=== PATIENT | female | born 1950 | race Caucasian/White ===

== ENCOUNTER 2022-05-11 08:37 | Outpatient (CLI) | payer MEDICARE, SELFPAY ==
--- NOTE | 2022-05-11 | EST_ITS ---
Patient Info Name: Bhumi Garcia Age: 72 years : 1950 Gender: Female Ht: 59 in Wt: 134 lbs BSA: 1.61 m2 HR: 50 bpm BP: 142 / 63 mmHg Exam Date: 05/11/2022 10:50 AM Exam Location: [facility] ([facility]) Stress Patient Status: Outpatient Admit Date: 05/11/2022 Staff Ordering Physician: Wilberto, Dorian WILSON Attending Provider: Wilberto, Dorian WILSON Exercise Technologist: Karen Ferro, CT Exam Type: CA stress shaniqua w NM Study Info Indications R00.2 - Palpitations A regadenoson stress test was performed. Summary 1. No abnormal ST/T wave changes with Lexiscan administration. 2. No arrhythmias were observed during the examination. 3. No chest discomfort with stress test. 4. Please correlate with nuclear medicine images, reported separately. Protocol: Lexiscan Stress ECG Details Stage: REST Duration (min): 1 min : 4 sec HR (bpm): 51 SBP (mmHg): 142 DBP (mmHg): 63 Stage: REST Duration (min): 6 min : 25 sec HR (bpm): 50 SBP (mmHg): 142 DBP (mmHg): 63 Stage: STAGE 1 Duration (min): 1 min : 0 sec HR (bpm): 73 SBP (mmHg): 142 DBP (mmHg): 63 Stage: RECOVERY Duration (min): 1 min : 0 sec HR (bpm): 105 SBP (mmHg): 179 DBP (mmHg): 61 Stage: RECOVERY Duration (min): 2 min : 0 sec HR (bpm): 92 SBP (mmHg): 179 DBP (mmHg): 61 Stage: RECOVERY Duration (min): 3 min : 0 sec HR (bpm): 87 SBP (mmHg): 179 DBP (mmHg): 61 Stage: RECOVERY Duration (min): 3 min : 25 sec HR (bpm): 82 SBP (mmHg): 184 DBP (mmHg): 60 Rest HR: 50 bpm Peak HR: 105 bpm Rest Sys BP: 142 mmHg Peak Sys BP: 184 mmHg Max Pred HR: 146 bpm % Max Pred HR: 72 % Target HR: 124 bpm Max RPP: 19,320 bpm*mmHg Total Time: 1 min : 0 sec Rest Cedeno BP: 63 mmHg Peak Cedeno BP: 60 mmHg Total Dose: 0.4 mg Resting ECG Sinus bradycardia. First degree A-V Block. Stress ECG No abnormal ST/T wave changes with Lexiscan administration. Arrhythmias No arrhythmias were observed during the examination. Report Signatures
--- NOTE | 2022-05-11 | ECHO_ITS ---
Patient Info Name: Bhumi Garcia Age: 72 years : 1950 Gender: Female Ht: 59 in Wt: 134 lbs BSA: 1.61 m2 HR: 48 bpm BP: 122 / 68 mmHg Heart Rhythm: Sinus Rhythm, Bradycardia Exam Date: 05/11/2022 9:09 AM Exam Location: [facility] Pulmonary Patient Status: Outpatient Admit Date: 05/11/2022 Staff Ordering Physician: WilbertoDorian MD Assistant Foreman: Damian Camacho RDCS Attending Provider: ShannonDorian MD Exam Type: CA echo doppler color flow Study Info Indications R00.2 - Palpitations Complete two-dimensional, color flow and Doppler transthoracic echocardiogram is performed. Summary 1. Complete two-dimensional, color flow and Doppler transthoracic echocardiogram is performed. 2. Left ventricular chamber dimension is normal. 3. Left ventricular systolic function is normal, estimated at 60-65%. 4. There is mildly increased left ventricular wall thickness. 5. The left ventricular diastolic function is grade I diastolic dysfunction. 6. Right ventricular systolic function is normal. 7. There is mild mitral valve regurgitation. Left Ventricle Left ventricular chamber dimension is normal. Left ventricular systolic function is normal, estimated at 60-65%. There is mildly increased left ventricular wall thickness. The left ventricular diastolic function is grade I diastolic dysfunction. Right Ventricle Right ventricular chamber dimension is normal. Right ventricular systolic function is normal. Left Atria Left atrial chamber dimension is normal. Right Atria Right atrial chamber dimension is normal. Atrial Septum Intact interatrial septum visualized by color flow imaging. Aortic Valve The aortic valve is trileaflet. There is no aortic valve stenosis. There is no aortic valve regurgitation. Pulmonic Valve The pulmonic valve is not well visualized. Mitral Valve The mitral valve has normal leaflets. There is no mitral valve stenosis. There is mild mitral valve regurgitation. Tricuspid Valve The tricuspid valve leaflets are normal. There is no significant tricuspid valve stenosis. There is trace tricuspid valve regurgitation. Pericardium/Pleural There is no pericardial effusion. Inferior Vena Cava Normal inferior vena cava with >50% collapse upon inspiration consistent with normal right atrial pressure, 3 mmHg. Aorta The aortic root size at the sinus of Valsalva is normal. Left Ventricular Outflow Tract Name Value Normal LVOT 2D LVOT Diameter 2.0 cm LVOT Doppler LVOT Peak Gradient 3 mmHg LVOT Mean Gradient 2 mmHg LVOT VTI 23 cm LVOT VTI/AV VTI Ratio 0.7 LVOT Stroke Volume 70 ml LVOT CO 3.3 l/min LVOT CI 2.0 l/min/m2 Mitral Valve Name Value Normal MV Doppler
--- NOTE | ~2022-05-11 | NM_ITS ---
NUCLEAR MEDICINE CARDIAC GATED STRESS TEST: HISTORY: Palpitations. TECHNIQUE: Rest images were obtained following intravenous administration of 10.6 mCi Tc99m Tetrofosm in. The patient was infused intravenously with Lexiscan (regadenoson). Then, third 2.7 mCi Tc99m Tetr ofosmin was administered intravenously, and stress images were obtained. Data was reconstructed into short axis and horizontal and vertical long axis SPECT images. Gated SPECT images were also obtained. FINDINGS: There are no perfusion defects seen on the stress or rest SPECT images. There is normal left ventricular wall motion. Left ventricular ejection fraction is 70%. IMPRESSION: Unremarkable study without findings to indicated ischemia by myocardial perfusion scintigraphy. Reviewed, dictated and finalized at location . [facility] DRIVER IMPRESSION: Unremarkable study without findings to indicated ischemia by myocardial perfusi on scintigraphy.
== END 2022-05-11 08:38 | disposition home or self-care (01) ==
PROVIDERS: PCP Internal Medicine; Visit Provider Internal Medicine
DX: R00.2 Palpitations (principal); I34.0 Nonrheumatic mitral (valve) insufficiency; R93.1 Abnormal findings on diagnostic imaging of heart and coronary circulation; R07.9 Chest pain, unspecified
CPT/HCPCS: 78452; 93017; 93306; A9502; J2785

== ENCOUNTER 2023-09-08 09:39 | Outpatient (CLI) | payer MEDICARE, SELFPAY ==
--- NOTE | ~2023-09-08 | CT_ITS ---
CT of the Abdomen and Pelvis: Indication: Abdominal pain Technique: 2.5 mm axial scans were obtained through the abdomen and pelvis following intravenous adm inistration of 100 cc of Omnipaque 350. Dose reduction technique was used on this scan by utilizing a utomated exposure control and iterative reconstruction technique. The dose-length product (DLP) was 3 84.17 mGy-cm. Findings: Scans through the lung bases are unremarkable. The liver, spleen, pancreas, gallbladder, adrenals and left kidney are within normal limits. Status p ost right nephrectomy. No evidence of aortic aneurysm. No lymphadenopathy. No bowel obstruction or bowel wall thickening. There is no evidence to suggest acute appendicitis. Images through the pelvis were performed. Possible soft tissue thickening along the right side of the inferior pelvis/urinary bladder with mild irregularity of the bladder contour in this region. Status post hysterectomy. No ascites. Impression: No definite acute abnormality seen. Suggestion of irregular soft tissue thickening in the inferior right pelvis and along the inferior ri ght urinary bladder with irregularity of the bladder contour this region. This is of uncertain etiolo gy. Correlate for prior surgery or other treatment changes in this region. Underlying bladder carcino ma or other pelvic neoplastic lesion cannot be excluded based on this exam. Consider additional maninder p as indicated. Status post right nephrectomy. Reviewed, dictated and finalized at location M. Impression: No definite acute abnormality seen. Suggestion of irregular soft tissue thickening in the inferior right pelvis and along the inferior right urinary bladder with irregularity of the bladder cont our this region. This is of uncertain etiology. Correlate for prior surgery or other treatment changes in this region. Underlying bladder carcinoma or other p elvic neoplastic lesion cannot be excluded based on this exam. Consider additio nal workup as indicated. Status post right nephrectomy.
[2023-09-08 10:16] LABS: Estimated Glomerular Filt Rate > 60
== END 2023-09-08 09:40 | disposition home or self-care (01) ==
LOC: ANHIMG 09:42
PROVIDERS: PCP Internal Medicine; Visit Provider Internal Medicine
DX: R10.9 Unspecified abdominal pain (principal); Z90.5 Acquired absence of kidney
CPT/HCPCS: 74177; Q9967

== ENCOUNTER 2024-09-29 10:58 | Emergency (ER) | payer MEDICARE, SELFPAY ==
[2024-09-29] VITALS (13 sets, daily range): BP systolic 113–135; BP diastolic 57–77; PULSE 56–72; RESP 11–20; TEMP 36.2; O2SAT 96–100
--- NOTE | ~2024-09-29 | XR_ITS ---
Clinical Indication: Syncope PA and lateral views of the chest: Comparison: None Findings: The lungs are clear, without evidence of focal consolidation or pleural effusion. Cardiome diastinal silhouette is within normal limits. Bones and soft tissues are unremarkable. Impression: Normal chest. Reviewed, dictated and finalized at location . Impression: Normal chest.
--- OUTSIDE RECORDS SUMMARY | 2024-09-29 11:02 | XMS_ITS | Data Portability ---
Author Organization [facility] Address [address] 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 Name Role Phone PRADEEP LADD Primary Care Provider Unavailabl e Assessment Encounter Date Assessment Date Assessment LastModified by Organization Details LastModified Time 07/20/2023 07/20/2023 Blood work old records continue current therapy pain contract reviewed and signed follow-up with me in 4 months [email or web address] Not available 07/20/2023 23:36:12 08/29/2023 08/29/[address] abdomen and pelvis start some tizanidine also physical therapy and she will let me know in a few days how she is doing with the muscle relaxer otherwise she will see me back in about 4 to 6 weeks if she gets worse she will call sooner. Patient states that she did have contrast IV dye that it makes her throat feel itchy and sometimes a little bit swollen she has had subsequent scans with dye where she was premedicated and she did fine we will premedicate Not available 08/29/2023 22:51:47 11/22/2023 11/22/2023 slight contusion this should lorie on its own she was worried about a DVT my suspicion for that is low [email or web address] Not available 11/24/2023 21:34:00 01/18/2024 01/18/2024 we will continue current therapy does not want anything EKG nothing as far as the palpitations palpitations go but she says if they change or if symptoms come along with it she will let us know we will continue current therapy blood work has been ordered follow up 4 months Not available 01/19/2024 15:53:38 07/11/2024 07/11/2024 blood work has been ordered bring up-to-date on controlled substance agreement and urinary drug screen she does not want to pursue anything for the palpitations at this time I have asked her to reconsider she has no associated symptoms with it but her last episode lasted an hour healthy lifestyle care instructions she will follow up with me in 4 months [email or web address] Not available 07/11/2024 14:09:07 Plan of Treatment Reminders Order Date Submit Date Provider Last Modified By Organization Details Last Modified Time Details Appointments ANY 15 2024 10:00A M Pradeep Ladd MD Not available Not available Not available Lab drug screen , 14 drugs (detec timed) , urine 2024 025 [facility], [address], [address], 09/03/2024 14:08:41 CBC w/ auto diff 2024 025 [facility], [address], [place], [address], 07/30/2024 14:00:52 CMP, serum or plasma 2024 025 [email or web address], [address], [place], [address], 07/22/2024 13:07:01 TSH, ultra- sensit kojo, serum 2024 025 [facility], [address], [place], [address], 07/22/2024 13:07:13 T3, free, serum or plasma 2024 025 [facility], [address], [place], [address], 07/22/2024 13:06:21 T4, free, serum 2024 025 [facility], [address], [place], [address], 07/22/2024 13:07:38 lipid panel, serum 2024 025 [facility], [address], [place], [address], 07/22/2024 13:06:49 CBC w/ auto diff 2023 024 [facility], [address], [place], [address], 01/31/2024 07:37:56 T4, free, serum 2023 024 [facility], [address], [place], [address], 01/31/2024 07:37:58 T3, free, serum or plasma 2023 024 [facility], [address], [place], [address], 01/31/2024 07:37:57 TSH, ultra- sensit kojo, serum 2023 024 [facility], [address], [place], [address], 01/31/2024 07:37:55 lipid panel, serum 2023 024 [facility], [address], [place], [address], 01/31/2024 07:37:53 CMP, serum or plasma 2023 024 [facility], [address], [place], [address], 01/31/2024 07:37:54 CBC w/ auto diff 2023 024 [facility], [address], [place], [address], 08/02/2023 13:40:30 CMP, serum or plasma 2023 024 [facility], [address], [place], [address], 08/02/2023 13:40:29 lipid panel, serum 2023 024 [facility], [address], [place], [address], 08/02/2023 13:40:30 T4, free, serum 2023 024 [facility], [address], [place], [address], 08/02/2023 13:40:30 TSH, ultra- sensit kojo, serum 2023 024 [facility], [address], [place], [address], 08/02/2023 13:40:29 T3, free, serum or plasma 2023 024 [facility], [address], [place], [address], 08/02/2023 13:40:30 Referral physic al therap ist referr al 2023 024 [facility], [address], [place], [address], 01/12/2024 09:12:57 Procedures None record ed. Surgeries None record ed. Imaging CT, abdome n + pelvis , w/ contra st - Pt will need to be pre medica shai due to IV contra st allerg y. 2023 024 [facility] (Imaging), [address], [place], [address], 09/11/2023 13:47:48 Medication Orders tizani dine 4 mg tablet 2023 024 [id number], [address], [place], [place], [id number], 01/18/2024 11:10:47 Patient TargetsNo targets recorded. Patient Instructions Encounter Date Encounter Id Patient Instructions Last Modified By Organization Details Last Modified Time 11/22/2023 [id number] A healthy lifestyle: care instructions [email or web address] Not available 11/24/2023 21:34:18 07/11/2024 [id number] A healthy lifestyle: care instructions [email or web address] Not available 07/11/2024 13:31:49 Reason for Referral Physical Therapist Referral for Abdominal pain Referring Physician: Pradeep Ladd, Internal Medicine, Encounter Date: 08/29/2023 Results Created Date Observation Date Name Description Value Unit Range Abnormal Flag Note LastModifiedBy Organization Detail LastModifiedTime 08/01/19 24 08/02/2023 LIPID PANEL cholesterol, total 139 mg/dL 100-19 9 Not Available [facility] ([facility]) [address] [place], [address], 08/02/2023 12:37:20 08/01/19 24 08/02/2023 LIPID PANEL triglyceride s 224 mg/dL 0-149 above high normal Not Available [facility] ([facility]) [address] [place], [address], 08/02/2023 12:37:20 08/01/19 24 08/02/2023 LIPID PANEL HDL cholesterol 36 mg/dL >39 below low normal Not Available [facility] ([facility]) [address] [place], [address], 08/02/2023 12:37:20 08/01/19 24 08/02/2023 LIPID PANEL VLDL cholesterol melchor 37 mg/dL 5-40 Not Available [facility] ([facility]) [address] [facility] [place], [address], 08/02/2023 12:37:20 08/01/19 24 08/02/2023 LIPID PANEL LDL chol calc ([facility]) 66 mg/dL 0-99 Not Available [facility] ([facility]) [address], [place], [address], 08/02/2023 12:37:20 08/01/19 24 08/02/2023 COMP. METAB OLIC PANEL (14) glucose 84 mg/dL 70-99 Not Available [facility] ([facility]) [address] [place], [address], 08/02/2023 12:37:20 08/01/19 24 08/02/2023 COMP. METAB OLIC PANEL (14) BUN 22 mg/dL 8-27 Not Available [facility] ([facility]) [address] [place], [address], 08/02/2023 12:37:20 08/01/19 24 08/02/2023 COMP. METAB OLIC PANEL (14) creatinine 0.90 mg/dL 0.57-1 .00 Not Available [facility] ([facility]) [address], [place], [address], 08/02/2023 12:37:20 08/01/19 24 08/02/2023 COMP. METAB OLIC PANEL (14) eGFR 67 mL/mi n/1.7 3 >59 Not Available [facility] ([facility]) [address] [place], [address], 08/02/2023 12:37:20 08/01/19 24 08/02/2023 COMP. METAB OLIC PANEL (14) BUN/creatini ne ratio 24 12-28 Not Available [facility] ([facility]) [address] [place], [address], 08/02/2023 12:37:20 08/01/19 24 08/02/2023 COMP. METAB OLIC PANEL (14) sodium 140 mmol/ L 134-14 4 Not Available [facility] ([facility]) [address] [place], [address], 08/02/2023 12:37:20 08/01/19 24 08/02/2023 COMP. METAB OLIC PANEL (14) potassium 4.4 mmol/ L 3.5-5. 2 Not Available [facility] ([facility]) [address] [place], [address], 08/02/2023 12:37:20 08/01/19 24 08/02/2023 COMP. METAB OLIC PANEL (14) chloride 103 mmol/ L 96-106 Not Available [facility] ([facility]) [address] [place], [address], 08/02/2023 12:37:20 08/01/19 24 08/02/2023 COMP. METAB OLIC PANEL (14) carbon dioxide, total 22 mmol/ L 20-29 Not Available [facility] ([facility]) [address] [place], [address], 08/02/2023 12:37:20 08/01/19 24 08/02/2023 COMP. METAB OLIC PANEL (14) calcium 9.4 mg/dL 8.7-10 .3 Not Available [facility] ([facility]) [address] [place], [address], 08/02/2023 12:37:20 08/01/19 24 08/02/2023 COMP. METAB OLIC PANEL (14) protein, total 6.5 g/dL 6.0-8. 5 Not Available [facility] ([facility]) [address] [place], [address], 08/02/2023 12:37:20 08/01/19 24 08/02/2023 COMP. METAB OLIC PANEL (14) albumin 4.4 g/dL 3.8-4. 8 Not Available [facility] ([facility]) [address], [place], [address], 08/02/2023 12:37:20 08/01/19 24 08/02/2023 COMP. METAB OLIC PANEL (14) globulin, total 2.1 g/dL 1.5-4. 5 Not Available [facility] ([facility]) [address] [place], [address], 08/02/2023 12:37:20 08/01/19 24 08/02/2023 COMP. METAB OLIC PANEL (14) A/G ratio 2.1 1.2-2. 2 Not Available [facility] ([facility]) [address] [place], [address], 08/02/2023 12:37:20 08/01/19 24 08/02/2023 COMP. METAB OLIC PANEL (14) bilirubin, total 0.2 mg/dL 0.0-1. 2 Not Available [facility] ([facility]) [address] [place], [address], 08/02/2023 12:37:20 08/01/19 24 08/02/2023 COMP. METAB OLIC PANEL (14) alkaline phosphatase 44 IU/L 44-121 Not Available [facility] ([facility]) [address] [place], [address], 08/02/2023 12:37:20 08/01/19 24 08/02/2023 COMP. METAB OLIC PANEL (14) AST (SGOT) 18 IU/L 0-40 Not Available [facility] ([facility]) [address] [place], [address], 08/02/2023 12:37:20 08/01/19 24 08/02/2023 COMP. METAB OLIC PANEL (14) ALT (SGPT) 25 IU/L 0-32 Not Available [facility] ([facility]) [address] [place], [address], 08/02/2023 12:37:20 08/01/19 24 08/02/2023 TSH TSH 0.917 uIU/m L 0.450- 4.500 Not Available [facility] ([facility]) [address], [place], [address], 08/02/2023 12:37:21 08/01/19 24 08/02/2023 CBC WITH DIFFE RENTI AL/PL ATELE T WBC 5.7 x10e3 /uL 3.4-10 .8 Not Available [facility] ([facility]) [address] [place], [address], 08/02/2023 12:37:21 08/01/19 24 08/02/2023 CBC WITH DIFFE RENTI AL/PL ATELE T RBC 4.42 x10e6 /uL 3.77-5 .28 Not Available [facility] ([facility]) [address], [place], [address], 08/02/2023 12:37:21 08/01/19 24 08/02/2023 CBC WITH DIFFE RENTI AL/PL ATELE T hemoglobin 13.0 g/dL 11.1-1 5.9 Not Available [facility] ([facility]) [address] [place], [address], 08/02/2023 12:37:21 08/01/19 24 08/02/2023 CBC WITH DIFFE RENTI AL/PL ATELE T hematocrit 39.3 % 34.0-4 6.6 Not Available [facility] ([facility]) [address] [place], [address], 08/02/2023 12:37:21 08/01/19 24 08/02/2023 CBC WITH DIFFE RENTI AL/PL ATELE T MCV 89 fL 79-97 Not Available [facility] ([facility]) [address] [place], [address], 08/02/2023 12:37:21 08/01/19 24 08/02/2023 CBC WITH DIFFE RENTI AL/PL ATELE T MCH 29.4 pg 26.6-3 3.0 Not Available [facility] ([facility]) [address], [place], [address], 08/02/2023 12:37:21 08/01/19 24 08/02/2023 CBC WITH DIFFE RENTI AL/PL ATELE T MCHC 33.1 g/dL 31.5-3 5.7 Not Available [facility] ([facility]) [address], [place], [address], 08/02/2023 12:37:21 08/01/19 24 08/02/2023 CBC WITH DIFFE RENTI AL/PL ATELE T RDW 12.6 % 11.7-1 5.4 Not Available [facility] ([facility]) [address], [place], [address], 08/02/2023 12:37:21 08/01/19 24 08/02/2023 CBC WITH DIFFE RENTI AL/PL ATELE T platelets 215 x10e3 /uL 150-45 0 Not Available [facility] ([facility]) [address], [place], [address], 08/02/2023 12:37:21 08/01/19 24 08/02/2023 CBC WITH DIFFE RENTI AL/PL ATELE T neutrophils 60 % notest ab. Not Available [facility] ([facility]) [address] [place], [address], 08/02/2023 12:37:21 08/01/19 24 08/02/2023 CBC WITH DIFFE RENTI AL/PL ATELE T lymphs 23 % notest ab. Not Available [facility] ([facility]) [address] [place], [address], 08/02/2023 12:37:21 08/01/19 24 08/02/2023 CBC WITH DIFFE RENTI AL/PL ATELE T monocytes 10 % notest ab. Not Available [facility] ([facility]) [address], [place], [address], 08/02/2023 12:37:21 08/01/19 24 08/02/2023 CBC WITH DIFFE RENTI AL/PL ATELE T eos 6 % notest ab. Not Available [facility] ([facility]) [address], [place], [address], 08/02/2023 12:37:21 08/01/19 24 08/02/2023 CBC WITH DIFFE RENTI AL/PL ATELE T basos 1 % notest ab. Not Available [facility] ([facility]) [address], [place], [address], 08/02/2023 12:37:21 08/01/19 24 08/02/2023 CBC WITH DIFFE RENTI AL/PL ATELE T neutrophils (absolute) 3.4 x10e3 /uL 1.4-7. 0 Not Available [facility] ([facility]) [address], [place], [address], 08/02/2023 12:37:21 08/01/19 24 08/02/2023 CBC WITH DIFFE RENTI AL/PL ATELE T lymphs (absolute) 1.3 x10e3 /uL 0.7-3. 1 Not Available [facility] ([facility]) [address] [place], [address], 08/02/2023 12:37:21 08/01/19 24 08/02/2023 CBC WITH DIFFE RENTI AL/PL ATELE T monocytes(ab solute) 0.5 x10e3 /uL 0.1-0. 9 Not Available [facility] ([facility]) [address] [place], [address], 08/02/2023 12:37:21 08/01/19 24 08/02/2023 CBC WITH DIFFE RENTI AL/PL ATELE T eos (absolute) 0.3 x10e3 /uL 0.0-0. 4 Not Available [facility] ([facility]) [address] [place], [address], 08/02/2023 12:37:21 08/01/19 24 08/02/2023 CBC WITH DIFFE RENTI AL/PL ATELE T baso (absolute) 0.1 x10e3 /uL 0.0-0. 2 Not Available [facility] ([facility]) [address] [place], [address], 08/02/2023 12:37:21 08/01/19 24 08/02/2023 CBC WITH DIFFE RENTI AL/PL ATELE T immature granulocytes 0 % notest ab. Not Available [facility] ([facility]) [address] [place], [address], 08/02/2023 12:37:21 08/01/19 24 08/02/2023 CBC WITH DIFFE RENTI AL/PL ATELE T immature grans (abs) 0.0 x10e3 /uL 0.0-0. 1 Not Available [facility] ([facility]) [address] [place], [address], 08/02/2023 12:37:21 08/01/19 24 08/02/2023 TRIIO DOTHY KEV E (T3), FREE triiodothyro nine (T3), free 2.9 pg/mL 2.0-4. 4 Not Available [facility] ([facility]) [address] [place], [address], 08/02/2023 12:37:21 08/01/19 24 08/02/2023 T4,FR EE(DI RECT) T4,free(dire ct) 1.56 NG/dL 0.82-1 .77 Not Available [facility] ([facility]) [address] [place], [address], 08/02/2023 12:37:22 01/30/2001/31/2024 LIPID PANEL cholesterol, total 137 mg/dL 100-19 9 Not Available [facility] ([facility]) [address] [place], [address], 01/31/2024 07:37:53 01/30/2001/31/2024 LIPID PANEL triglyceride s 168 mg/dL 0-149 above high normal Not Available [facility] ([facility]) [address] [place], [address], 01/31/2024 07:37:53 01/30/2001/31/2024 LIPID PANEL HDL cholesterol 37 mg/dL >39 below low normal Not Available [facility] ([facility]) [address] [place], [address], 01/31/2024 07:37:53 01/30/2001/31/2024 LIPID PANEL VLDL cholesterol melchor 29 mg/dL 5-40 Not Available [facility] ([facility]) [address] [place], [address], 01/31/2024 07:37:53 01/30/2001/31/2024 LIPID PANEL LDL chol calc ([facility]) 71 mg/dL 0-99 Not Available [facility] ([facility]) [address] [place], [address], 01/31/2024 07:37:53 01/30/2001/31/2024 COMP. METAB OLIC PANEL (14) glucose 119 mg/dL 70-99 above high normal Not Available [facility] ([facility]) [address] [place], [address], 01/31/2024 07:37:54 01/30/2001/31/2024 COMP. METAB OLIC PANEL (14) BUN 21 mg/dL 8-27 Not Available [facility] ([facility]) [address] [place], [address], 01/31/2024 07:37:54 01/30/20 24 01/31/2024 COMP. METAB OLIC PANEL (14) creatinine 0.84 mg/dL 0.57-1 .00 Not Available [facility] ([facility]) [address] [place], [address], 01/31/2024 07:37:54 01/30/20 24 01/31/2024 COMP. METAB OLIC PANEL (14) eGFR 72 mL/mi n/1.7 3 >59 Not Available [facility] ([facility]) [address] [place], [address], 01/31/2024 07:37:54 01/30/20 24 01/31/2024 COMP. METAB OLIC PANEL (14) BUN/creatini ne ratio 25 12-28 Not Available [facility] ([facility]) [address] [place], [address], 01/31/2024 07:37:54 01/30/20 24 01/31/2024 COMP. METAB OLIC PANEL (14) sodium 139 mmol/ L 134-14 4 Not Available [facility] ([facility]) [address] [place], [address], 01/31/2024 07:37:54 01/30/20 24 01/31/2024 COMP. METAB OLIC PANEL (14) potassium 4.2 mmol/ L 3.5-5. 2 Not Available [facility] ([facility]) [address] [place], [address], 01/31/2024 07:37:54 01/30/20 24 01/31/2024 COMP. METAB OLIC PANEL (14) chloride 103 mmol/ L 96-106 Not Available [facility] ([facility]) [address] [place], [address], 01/31/2024 07:37:54 01/30/2001/31/2024 COMP. METAB OLIC PANEL (14) carbon dioxide, total 23 mmol/ L 20-29 Not Available [facility] ([facility]) [address] [place], [address], 01/31/2024 07:37:54 01/30/2001/31/2024 COMP. METAB OLIC PANEL (14) calcium 9.4 mg/dL 8.7-10 .3 Not Available [facility] ([facility]) [address], [place], [address], 01/31/2024 07:37:54 01/30/2001/31/2024 COMP. METAB OLIC PANEL (14) protein, total 6.6 g/dL 6.0-8. 5 Not Available [facility] ([facility]) [address], [place], [address], 01/31/2024 07:37:54 01/30/2001/31/2024 COMP. METAB OLIC PANEL (14) albumin 4.4 g/dL 3.8-4. 8 Not Available [facility] ([facility]) [address], [place], [address], 01/31/2024 07:37:54 01/30/2001/31/2024 COMP. METAB OLIC PANEL (14) globulin, total 2.2 g/dL 1.5-4. 5 Not Available [facility] ([facility]) [address], [place], [address], 01/31/2024 07:37:54 01/30/2001/31/2024 COMP. METAB OLIC PANEL (14) bilirubin, total 0.2 mg/dL 0.0-1. 2 Not Available [facility] ([facility]) [address] [place], [address], 01/31/2024 07:37:54 01/30/2001/31/2024 COMP. METAB OLIC PANEL (14) alkaline phosphatase 42 IU/L 44-121 below low normal Not Available [facility] ([facility]) [address] [place], [address], 01/31/2024 07:37:54 01/30/2001/31/2024 COMP. METAB OLIC PANEL (14) AST (SGOT) 19 IU/L 0-40 Not Available [facility] ([facility]) [address], [place], [address], 01/31/2024 07:37:54 01/30/2001/31/2024 COMP. METAB OLIC PANEL (14) ALT (SGPT) 19 IU/L 0-32 Not Available [facility] ([facility]) [address], [place], [address], 01/31/2024 07:37:54 01/30/2001/31/2024 TSH TSH 1.080 uIU/m L 0.450- 4.500 Not Available [facility] ([facility]) [address], [place], [address], 01/31/2024 07:37:55 01/30/2001/31/2024 CBC WITH DIFFE RENTI AL/PL ATELE T WBC 5.6 x10e3 /uL 3.4-10 .8 Not Available [facility] ([facility]) [address], [place], [address], 01/31/2024 07:37:56 01/30/2001/31/2024 CBC WITH DIFFE RENTI AL/PL ATELE T RBC 4.60 x10e6 /uL 3.77-5 .28 Not Available [facility] ([facility]) [address], [place], [address], 01/31/2024 07:37:56 01/30/2001/31/2024 CBC WITH DIFFE RENTI AL/PL ATELE T hemoglobin 13.6 g/dL 11.1-1 5.9 Not Available [facility] ([facility]) [address], [place], [address], 01/31/2024 07:37:56 01/30/2001/31/2024 CBC WITH DIFFE RENTI AL/PL ATELE T hematocrit 42.2 % 34.0-4 6.6 Not Available [facility] ([facility]) [address], [place], [address], 01/31/2024 07:37:56 01/30/2001/31/2024 CBC WITH DIFFE RENTI AL/PL ATELE T MCV 92 fL 79-97 Not Available [facility] ([facility]) [address], [place], [address], 01/31/2024 07:37:56 01/30/2001/31/2024 CBC WITH DIFFE RENTI AL/PL ATELE T MCH 29.6 pg 26.6-3 3.0 Not Available [facility] ([facility]) [address], [place], [address], 01/31/2024 07:37:56 01/30/2001/31/2024 CBC WITH DIFFE RENTI AL/PL ATELE T MCHC 32.2 g/dL 31.5-3 5.7 Not Available [facility] ([facility]) [address], [place], [address], 01/31/2024 07:37:56 01/30/2001/31/2024 CBC WITH DIFFE RENTI AL/PL ATELE T RDW 12.4 % 11.7-1 5.4 Not Available [facility] ([facility]) [address], [place], [address], 01/31/2024 07:37:56 01/30/2001/31/2024 CBC WITH DIFFE RENTI AL/PL ATELE T platelets 237 x10e3 /uL 150-45 0 Not Available [facility] ([facility]) [address], [place], [address], 01/31/2024 07:37:56 01/30/2001/31/2024 CBC WITH DIFFE RENTI AL/PL ATELE T neutrophils 61 % notest ab. Not Available [facility] ([facility]) [address], [place], [address], 01/31/2024 07:37:56 01/30/2001/31/2024 CBC WITH DIFFE RENTI AL/PL ATELE T lymphs 25 % notest ab. Not Available [facility] ([facility]) [address], [place], [address], 01/31/2024 07:37:56 01/30/2001/31/2024 CBC WITH DIFFE RENTI AL/PL ATELE T monocytes 9 % notest ab. Not Available [facility] ([facility]) [address], [place], [address], 01/31/2024 07:37:56 01/30/2001/31/2024 CBC WITH DIFFE RENTI AL/PL ATELE T eos 4 % notest ab. Not Available [facility] ([facility]) [address], [place], [address], 01/31/2024 07:37:56 01/30/2001/31/2024 CBC WITH DIFFE RENTI AL/PL ATELE T basos 1 % notest ab. Not Available [facility] ([facility]) [address], [place], [address], 01/31/2024 07:37:56 01/30/2001/31/2024 CBC WITH DIFFE RENTI AL/PL ATELE T neutrophils (absolute) 3.5 x10e3 /uL 1.4-7. 0 Not Available [facility] ([facility]) [address], [place], [address], 01/31/2024 07:37:56 01/30/2001/31/2024 CBC WITH DIFFE RENTI AL/PL ATELE T lymphs (absolute) 1.4 x10e3 /uL 0.7-3. 1 Not Available [facility] ([facility]) [address], [place], [address], 01/31/2024 07:37:56 01/30/2001/31/2024 CBC WITH DIFFE RENTI AL/PL ATELE T monocytes(ab solute) 0.5 x10e3 /uL 0.1-0. 9 Not Available [facility] ([facility]) [address], [place], [address], 01/31/2024 07:37:56 01/30/2001/31/2024 CBC WITH DIFFE RENTI AL/PL ATELE T eos (absolute) 0.2 x10e3 /uL 0.0-0. 4 Not Available [facility] ([facility]) [address], [place], [address], 01/31/2024 07:37:56 01/30/20 24 01/31/2024 CBC WITH DIFFE RENTI AL/PL ATELE T baso (absolute) 0.0 x10e3 /uL 0.0-0. 2 Not Available [facility] ([facility]) [address], [place], [address], 01/31/2024 07:37:56 01/30/2001/31/2024 CBC WITH DIFFE RENTI AL/PL ATELE T immature granulocytes 0 % notest ab. Not Available [facility] ([facility]) [address], [place], [address], 01/31/2024 07:37:56 01/30/2001/31/2024 CBC WITH DIFFE RENTI AL/PL ATELE T immature grans (abs) 0.0 x10e3 /uL 0.0-0. 1 Not Available [facility] ([facility]) [address], [place], [address], 01/31/2024 07:37:56 01/30/20 24 01/31/2024 TRIIO DOTHY KEV E (T3), FREE triiodothyro nine (T3), free 3.0 pg/mL 2.0-4. 4 Not Available [facility] ([facility]) [address], [place], [address], 01/31/2024 07:37:57 01/30/2001/31/2024 T4,FR EE(DI RECT) T4,free(dire ct) 1.79 NG/dL 0.82-1 .77 above high normal Not Available [facility] ([facility]) [address], [place], [address], 01/31/2024 07:37:58 09/09/19 24 09/08/2023 CT, abdom en + pelvi s, w/ contr ast No observ ation record ed. [facility] [address], [place], [address], 09/11/2023 16:18:30 Result Notes None recorded. Problems Name Problem SNOMED Code Status Onset Date Resolution Date Notes Provider Name and Address Organization Details Recorded Time Hypothyroidism 36296542 Active 2023 Pradeep Ladd MD Attn: Paul barton,[address] [facility], [place], [address], [place] [facility] 4 14:45:24 Anxiety 05157201 Active 2023 Pradeep Ladd MD Attn: Paul barton,[address] [facility], [place], [address], [place] [facility] 4 14:45:25 Chronic low back pain 466399120 Active 2023 Pradeep Ladd MD Attn: Paul barton,[address], [place], [address], [facility] 4 14:45:27 Hyperlipidemia 91682452 Active 2023 Pradeep Ladd MD Attn: Paul barton,[address], [place], [address], [facility] 4 14:45:29 Renewal of prescription Active 2023 SHIV Moy, [facility] 4 15:00:52 Abdominal pain 67701921 Active 2023 SHIV Moy, [facility] 4 17:17:06 Problem Notes None recorded. Procedures Surgical History Date Name Laterality Status Provider Name and Address Organization Details Recorded Time Total hysterectomy completed Marine Borja MA [facility] 07/20/2023 14:07:48 excision of right kidney completed Marine Borja MA [facility] 07/20/2023 14:09:05 release of torticollis completed Marine Borja MA [facility] 07/20/2023 14:09:59 Imaging Results None recorded. Procedure Notes None recorded. Medical Equipment None Reported. Allergies Allergen ID Allergen Name Allergen Category Reaction Reaction Severity Criticality Documentation Date Start Date Code Code System Note Provider Name and Address Organization Details Recorded Time 971448 Iodinated contrast media (substanc e) medicatio n facial swelling Not available Not available 07/20/2023 80043 2003 SNOMED SHIV Hernandez [facility] 4 14:01:15 116273 amoxicill in medicatio n Not available Not available Not available 07/20/2023 723 RxNorm SHIV Hernandez [facility] 4 14:01:23 Medications Name Sig Start Date Stop Date Status Note LastModified by Organization Details LastModified Time atorvastati n 10 mg tablet TAKE 1 TABLET BY MOUTH DAILY 2024 active Not Available Not Available Not Avai lable azithromyci n 250 mg tablet 07/19 completed Not Available Not Available Not Available tizanidine 4 mg tablet TAKE 1 TABLET BY MOUTH TWICE DAILY 01/17 completed Not Available Not Available Not Available valacyclovi r 1 gram tablet TAKE 2 TABLETS BY MOUTH TWICE DAILY FOR 1 DAY NEEDED FOR FLARES 01/17 completed Not Available Not Available Not Available sulfamethox azole 800 mg-trimetho prim 160 mg tablet TAKE 1 TABLET BY MOUTH TWICE DAILY 01/17 completed Not Available Not Available Not Available tramadol 50 mg tablet TAKE 1 TABLET BY MOUTH THREE TIMES DAILY NEEDED FOR PAIN active Not Available Not Available No t Available levothyroxi ne 100 mcg tablet TAKE 1 TABLET BY MOUTH EVERY DAY 02/07 completed Not Available Not Available Not Available levothyroxi ne 88 mcg tablet TAKE 1 TABLET BY MOUTH EVERY DAY 2024 active Not Available Not Available Not Avai lable lorazepam 2 mg tablet TAKE 1 TABLET BY MOUTH AT BEDTIME NEEDED 2024 active Not Available Not Available Not Avai lable prednisone 50 mg tablet take 1 PO at 13hrs, 7hrs and 1 hr before contrast media injection 01/17 completed Not Available Not Available Not Available butalbital- aspirin-caf feine 50 mg-325 mg-40 mg capsule TAKE 1 CAPSULE BY MOUTH EVERY 4 HOURS 2024 active Not Available Not Available Not Avai lable Banophen 50 mg capsule TAKE 1 CAPSULE BY MOUTH 1 HOUR BEFORE CONTRAST MEDIA INJECTION 01/17 completed Not Available Not Available Not Available Vitals Date Recorded Body height Body mass index (BMI) Body weight Heart rate Oxygen saturation Oxygen saturation in Arterial blood by Pulse oximetry Systolic blood pressure Diastolic blood pressure Provider Name and Address Organization Details Last Updated DateTime 5 149.86 cm 27.7 kg/m2 95187.2 3 g 61 /min 99 % 99 % 118 mm[Hg] 64 mm[Hg] Lee Ann Gillespie [place] - [facility] 5 11:03:26 Date Recorded Body height Body mass index (BMI) Body weight Heart rate Oxygen saturation Oxygen saturation in Arterial blood by Pulse oximetry Systolic blood pressure Diastolic blood pressure Provider Name and Address Organization Details Last Updated DateTime 4 149.86 cm 28.1 kg/m2 60937.3 4 g 65 /min 97 % 97 % 124 mm[Hg] 72 mm[Hg] Marine Borja MA [facility] 4 14:12:56 Date Recorded Body height Body mass index (BMI) Body weight Heart rate Oxygen saturation Oxygen saturation in Arterial blood by Pulse oximetry Systolic blood pressure Diastolic blood pressure Provider Name and Address Organization Details Last Updated DateTime 4 149.86 cm 28.2 kg/m2 43470.4 9 g 61 /min 96 % 96 % 130 mm[Hg] 70 mm[Hg] Ceci Kwan MA [facility] 4 16:13:53 Date Recorded Body height Body mass index (BMI) Body weight Heart rate Oxygen saturation Oxygen saturation in Arterial blood by Pulse oximetry Systolic blood pressure Diastolic blood pressure Provider Name and Address Organization Details Last Updated DateTime 4 149.86 cm 28.3 kg/m2 66170.5 7 g 60 /min 97 % 97 % 132 mm[Hg] 70 mm[Hg] Ceci Kwan MA [facility] 4 14:11:03 Date Recorded Body height Body mass index (BMI) Body weight Respiratory rate Heart rate Oxygen saturation Oxygen saturation in Arterial blood by Pulse oximetry Systolic blood pressure Diastolic blood pressure Provider Name and Address Organization Details Last Updated DateTime 4 149.86 cm 28.1 kg/m2 72264.4 8 g 18 /min 60 /min 97 % 97 % 128 mm[Hg] 72 mm[Hg] Claire Wang MA [facility] 4 11:13:44 Social History Question Answer Notes LastModified by Organizat ion Details LastModified Time Tobacco Smoking Status Former Smoker Marine Borja MA null, [facility] 07/20/2023 14:06:38 Do You Have An Advance Directive? Yes Information n ot available 07/20/2023 Are You Blind Or Do You Have Difficulty Seeing? No Information n ot available 07/20/2023 What Is Your Level Of Caffeine Consumption? Moderate Information not available 07/20/2023 In The 14 Days Before Symptom Onset, Have You Had Close Contact With A Laboratory-confirm ed COVID-19 While That Case Was Ill? No Information n ot available 07/11/2024 In The 14 Days Before Symptom Onset, Have You Had Close Contact With A Person Who Is Under Investigation For COVID-19 While That Person Was Ill? No Information not available 07/11/2024 Have You Been To An Area Known To Be High Risk For COVID-19? No Information not available 07/11/2024 Are You Deaf Or Do You Have Serious Difficulty Hearing? No Information not available 07/20/2023 What Type Of Diet Are You Following? REGULAR Information n ot available 07/20/2023 What Was The Date Of Your Most Recent Tobacco Screening? 07/11/2024 Information not available 07/11/2024 What Is Your Current Pack Years? 10-19packyear s Information not available 07/20/2023 What Is Your Relationship Status? Information not available 07/20/2023 Do You Have Smoke And Carbon Monoxide Detectors In Your Home? Yes Information not available 07/20/2023 How Much Tobacco Do You Smoke? 1 PPW Information not available 07/20/2023 Do You Use Sunscreen Routinely? Yes Information not available 07/20/2023 Has Tobacco Cessation Counseling Been Provided? No Information not available 07/20/2023 How Many Years Have You Smoked Tobacco? 20 Information not available 07/20/2023 Sex: Female Functional Status Question Answer Note LastModified by Organizat ion Details LastModified Time Do you use any illicit or recreational drugs? No Information not available 07/20/2023 Do you or have you ever used any other forms of tobacco or nicotine? No Information not available 07/20/2023 What is your level of alcohol consumption? Occasional Information not available 07/20/2023 Are you able to care for yourself? Yes Information n ot available 07/20/2023 What is your exercise level? Moderate Information not available 07/20/2023 Mental Status Question Answer Note LastModified by Organization D etails LastModified Time Do you feel stressed (tense, restless, nervous, or anxious, or unable to sleep at night)? [id number] Information not available 07/20/2023 Family History Relationship Description Onset Age of this Age Resolved Age Notes LastModified by Organization Details LastModified Time Father Coronary arterioscler osis bandersonma Not available 06/23 14:05:10 Father Heart disease bandersonma Not available 06/23 14:05:27 Father Hypercholest erolemia bandersonma Not available 06/23 14:05:48 Father Myocardial infarction bandersonma Not available 14:05:55 Mother Disorder of thyroid gland bandersonma Not available 06/23 14:05:18 Sister Hypertensive disorder bandersonma Not available 06/23 14:05:40 Medical History Condition Response Coronary Artery Disease N Other N Atrial Fibrillation N High Blood Pressure Y Depression N COPD N Blood Clots N Anxiety Disorder Y Muscle, Joint, or Bone Problems N Acid Reflux (GERD) N Cancer N Stroke N High Cholesterol Y Liver Disease N Headaches N Kidney or Bladder Problems N Thyroid Problems Y GI Problems N Skin Problems N Anemia N Heart Attack (VT) N Diabetes N Seizures/Epilepsy N Asthma N Allergies N Hepatitis N Heart Failure N Osteoporosis N Gynecological History Statement/Question Response If Post Menopausal, Age at Menopause 50 Obstetrics History GPAL:G 0 P 0 0 0 0 Immunizations Vaccine Type Date Status Note Provider Nam e and Address Organization Details Recorded Time Influenza, adjuvanted, trivalent, PF 01/29/2018 [place] SHIV [place] [facility] 07/11/2024 09:37:26 zoster recombinant 05/24/2022 [place] [facility] 07/11/2024 09:37:26 zoster recombinant 10/19/2022 completed Lee Ann Gilles[place] [facility] 07/11/2024 09:37:26 Influenza, high-dose, quadrivalent, PF 01/16/2021 completed [place] [facility] 07/11/2024 09:37:26 Influenza, high-dose, quadrivalent, PF 01/21/2021 completed [place] [facility] 07/11/2024 09:37:26 Influenza, high-dose, quadrivalent, PF 01/29/2022 [place] SHIV [place] [facility] 07/11/2024 09:37:26 Influenza, high-dose, quadrivalent, PF 02/03/2023 [place] [facility] 07/11/2024 09:37:26 Influenza, adjuvanted, quadrivalent, PF 01/16/2020 [place] [facility] 07/11/2024 09:37:26 COVID-19, mRNA, LNP-S, PF, 100 mcg/0.5mL dose or 50 mcg/0.25mL dose 06/04/2020 [place] [facility] 07/11/2024 09:37:26 COVID-19, mRNA, LNP-S, PF, 100 mcg/0.5mL dose or 50 mcg/0.25mL dose 07/28/2021 [place]IV [place] [facility] 07/11/2024 09:37:26 COVID-19, mRNA, LNP-S, PF, 100 mcg/0.5mL dose or 50 mcg/0.25mL dose 02/17/2021 SHIV [place] [facility] 07/11/2024 09:37:26 COVID-19, mRNA, LNP-S, bivalent, PF, 50 mcg/0.5 mL or 25mcg/0.25 mL dose 01/18/2022 [place] [facility] 07/11/2024 09:37:26 COVID-19, mRNA, LNP-S, PF, 50 mcg/0.5 mL 02/03/2023 [place] [facility] 07/11/2024 09:37:26 Tdap 11/17/2017 [place]IV [place] [facility] 07/11/2024 09:37:26 Influenza, high-dose, trivalent, PF 01/17/2019 [place] [facility] 07/11/2024 09:37:26 Influenza, high-dose, trivalent, PF 02/05/2018 [place] [facility] 07/11/2024 09:37:27 Influenza, high-dose, trivalent, PF 02/08/2017 [place] [facility] 07/11/2024 09:37:27 Influenza, high-dose, trivalent, PF 02/24/2016 completed Lee Ann Gillespie [place] [facility] 07/11/2024 09:37:27 Influenza, high-dose, trivalent, PF 04/11/2015 completed Lee Ann Gilles[place] [facility] 07/11/2024 09:37:27 COVID-19, mRNA, LNP-S, PF, 100 mcg/0.5mL dose or 50 mcg/0.25mL dose 06/09/2020 completed Reena Lagun[place] LPN [place] [facility] 06/09/2020 13:17:20 COVID-19, mRNA, LNP-S, PF, 100 mcg/0.5mL dose or 50 mcg/0.25mL dose 07/02/2020 completed Pablo Gandara [place] [facility] 07/02/2020 12:13:17 Past Encounters Encounter ID Performer Location Encounter Start Date Encounter Closed Date Diagnosis/Indication Diagnosis SNOMED-CT Code Diagnosis ICD10 Code Diagnosis Note [id number] MD Sridhar Bourgeois 14 IM [address] [facility] [place] [address] 06/04/2020 11:45:37 06/05/2020 08:18:30 Administration of SARS-CoV-2 antigen vaccine 729993900 Z23 [id number] MD Sridhar Bourgeois 14 IM 4 [facility] [place] [address] 07/02/2020 11:30:14 07/03/2020 12:33:33 Administration of SARS-CoV-2 antigen vaccine 544566853 Z23 [id number] Pradeep Ladd [facility] - [place] [address] [place] [address] 07/20/2023 13:51:05 07/20/2023 15:06:08 Hypothyroidism 87148456 E03.9 Anxiety 51771251 F41.9 Chronic low back pain 27 1611824 M54.50 Hyperlipidemia 55404262 E78.5 Long-term drug therapy 230388168 Z79.255 [id number] MD Marlon Patel (Adult Med) [address] [place] [address] 08/29/2023 15:48:59 08/29/2023 17:27:01 Abdominal pain 64258926 R10.9 [id number] MD Marlon Patel (Adult Med) [address] [place] [address] 11/22/2023 14:02:36 11/22/2023 14:59:15 Overweight 923719811 E66.3 Pain in le ft lower limb 952245690 M79.221 [id number] Pradeep Ladd [facility] [address] [place] [address] 01/18/2024 10:56:36 01/18/2024 12:05:07 Hyperlipidemia 91943845 E78.5 Hypothyroidism 79431872 E03.9 Long-term drug therapy 637687028 Z79.899 Anxiety 09210014 F41.9 Chronic low back pain 27 9445721 M54.50 [id number] Pradeep Ladd [facility] [address] [place] [address] 07/11/2024 10:52:22 07/11/2024 11:53:50 Body mass index 25-29 - overweight 417854708 Z68.27 Overweight 338078756 E66 .3 Palpitations 61099904 R0 0.2 Headache 69845419 R51.9 Hyperlipidemia 64513766 E78.5 Hypothyroidism 23991718 E03.9 Chronic low back pain 27 6608176 M54.50 Anxiety 54288168 F41.9 Health Concerns Section Related Observation LastModified by Organization Detai ls LastModified Time None Recorded Concern Status LastModified by Organization Details LastModified Time None Recorded Advance Directives Directive Y: Payers Encounter Date Sequence Insurance Name Policy Number Policy Castillo Covered Member ID Castillo Member ID Guarantor Name 07/20/2023 1 [facility] (MEDICARE REPLACEMENT/A DVANTAGE - HMO) [id number] Bhumi Garcia [id number] Bhumi Garcia 08/29/2023 1 [facility] (MEDICARE REPLACEMENT/A DVANTAGE - HMO) [id number] Bhumi Macdonaldriel [id number] Bhumi Jose 11/22/2023 1 [facility] (MEDICARE REPLACEMENT/A DVANTAGE - HMO) [id number] Bhumi Lg Jose [id number] Bhumi Jose 01/18/2024 1 [facility] (MEDICARE REPLACEMENT/A DVANTAGE - HMO) [id number] Bhumi L Jose [id number] Bhumi Jose 07/11/2024 1 [facility] (MEDICARE REPLACEMENT/A DVANTAGE - HMO) [id number] Bhumi L Jose [id number] Bhumi Jose Notes Date Note Type Note Provider Name and Address Organization Details Recorded Time 07/20/2023 text/html Hypothyroid no h eat or cold intolerance anxiety doing fine on current meds chronic low back pain tramadol sparingly hyperlipidemia told to follow low-fat diet occasional headache butalbital is the only thing that really helps Pradeep Ladd MD Attn: Accounting[address] [place], [address], [facility] 07/20/2023 23:36:31 08/29/2023 text/html Several weeks no w pain on the right side from the flank extending around to the front worse with bending and twisting 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 she has not had clear-cut genitourinary complaints she took a Flexeril from her friend with really no relief she tried to play golf it was worse she also has a dull ache down on that right side as well that is unrelated to position nothing radiates into the lower extremities has been no fever chills night sweats weight loss no nausea no vomiting Pradeep Ladd MD Attn: [address] [place], [address], [facility] 08/29/2023 22:52:04 11/22/2023 text/html acute appointmen t for a knot on her leg she hit it on a car door Pradeep Ladd MD Attn: Accounting[address] [place], [address], [facility] 11/24/2023 21:34:21 01/18/2024 text/html saw the urologis t had a cystoscopy everything turned out fine had some pain in her back therapy made it better. Says she gets palpitations about every 9 weeks or so but does not want anything done about it there was no associated symptoms her anxiety has been doing fine hypothyroid needs blood work hyperlipidemia continues atorvastatin and does try to watch her diet Pradeep Ladd MD Attn: [address]ing[address] [facility], [place], [address], [facility] 01/19/2024 15:53:56 07/11/2024 text/html headaches intermittently uses butalbital aspirin caffeine only thing that has worked with her through the years. Anxiety is doing fine she still has palpitations intermittently never did have any while she was wearing a 2 week Holter monitor. Chronic low back pain appears to be stable at this time occasionally we will need some tramadol to settle it down hypothyroid no heat or cold intolerance Pradeep Ladd MD Attn: Accounting[address] [facility], [place], [address], [facility] 07/11/2024 14:09:34 OBGyn Episode No OBEpisode recorded.
--- OUTSIDE RECORDS SUMMARY | 2024-09-29 11:02 | XMS_ITS | Data Portability ---
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 Name Role Phone LADDPRADEEP Primary Care Provider Assessment Encounter Date Assessment Date Assessment LastModified by Organization Details LastModified Time 11/24/2022 11/24/2022 Blood work has been ordered screenings have been ordered were appropriate and patient agreeable as well as immunizations anxiety dyslipidemia hypothyroidism migraines have been discussed at length follow-up with me in 6 months continue current therapy [email or web address] Not available 11/27/2022 17:50:42 Plan of Treatment Reminders Order Date Submit Date Provider Last Modified By Organization Details Last Modified Time Details Appointments None recorded. Lab CBC w/ auto diff 2022 023 [email or web address] Not available 3 14:26:48 lipid panel, serum 2022 023 [email or web address] Not available 14:26:48 CMP, serum or plasma 2022 023 [email or web address] Not available 14:26:48 T3, free, serum or plasma 2022 023 [email or web address] Not available 14:26:48 TSH, serum or plasma 2022 023 [email or web address] Not available 14:26:48 T4, free, serum 2022 023 [email or web address] Not available 14:26:48 Referral None recorded. Procedures None recorded. Surgeries None recorded. Imaging MAMMO, screening, digital, bilateral 2022 023 [email or web address] Not available 3 10:04:16 bone density 2022 023 [email or web address] Not available 4 11:10:48 Medication Orders None recorded. Patient TargetsNo targets recorded. Patient Instructions Encounter Date Encounter Id Patient Instructions Last Modified By Organization Details Last Modified Time 11/24/2022 [id number] dementia rating scale-2* [email or web address] Not available 11/24/2022 14:26:48 alcohol misuse* [email or web address] Not available 11/24/2022 14:26:48 depression screening* Not available 11/24/2022 14:26:48 multi-dimensiona l health assessment questionnaire* [email or web address] Not available 11/24/2022 14:26:48 Personalized Hea lt Plan and Screening Recommendations Advance Directives - Do you have one? Yes Advance Directives - Do we have your advance directive on file in your health record? No, please bring in a copy at your earliest convenience Primary Prevention/Interven tion (prevents or decreases the chance of common diseases from occurring) Smoking Risk: Non Smoker I have no recommendations. Alcohol Misuse Screening: Negative I have no recommendations. Weight: Appropriate Physical activity: Appropriate physical activity Nutrition: Good Fall Risk (screened today): Low Refer to attached handout Preventing Falls: After your Visit Vaccines Pneumococcal: No further needed Influenza: Your next one in the fall of this year Chronic Disease Risks Stroke: Intermediate Risk Continue current treatment plan Heart Attack: Intermediate Risk Continue current treatment plan Clogging of the Arteries: Intermediate Risk Continue current treatment plan Diabetes: Low Risk I have no recommendations Secondary Prevention/Interven tion (detects treatable diseases before they may cause symptoms, disability, or ) Breast Cancer Screening with mammogram: Recommended today Cervical/Uterine/Ov lj Cancer Screening: No screening necessary Osteoporosis Screening: Recommended today Date Screening Last Performed: Colon Cancer Screening: Colonoscopy In: 02/18/2027 Date Screening Last Performed: 02/17/17 Eye Disease Screening: Your next exam in: 07/2023 Dementia Risk: Low I have no recommendations Depression Screening: Negative I have no recommendations. Not available 11/24/2022 11:07:36 Reason for Referral None Reported. Results Created Date Observation Date Name Description Value Unit Range Abnormal Flag Note LastModifiedBy Organization Detail LastModifiedTime 05/11/19 22 05/11/2021 T4 FREE free T4 1.50 NG/dL 0.78-2 .19 Not Available [facility] (Lab) [address] [place], [address], 05/11/2021 20:02:21 05/11/19 22 05/11/2021 VITAM IN D 25-HY DROXY [id number] 47.0 NG/mL 30-100 Vitam in D Statu s: Defic ient: <20 ng/mL Insuf ficie nt: 20-29 ng/mL Suffi cient : 30-10 0 ng/mL Not Available [facility] (Lab) [address] [place], [address], 05/11/2021 21:11:54 05/11/19 22 05/11/2021 TSH thyroid-stim ulating hormone 0.365 uIU/m L 0.465- 4.680 low Not Available [facility] (Lab) [address] [place], [address], 05/11/2021 20:15:20 05/11/19 22 05/11/2021 T3 FREE free T3 3.9 pg/mL 2.77-5 .27 Not Available [facility] (Lab) [address] [place], [address], 05/11/2021 20:02:26 05/11/19 22 05/11/2021 LIPID PANEL LDL cholesterol, calculated 59 mg/dL 0-130 NIH PIOTR NSUS REPOR T RECOM MENDA TIONS FOR LDL: ADULT CHILD LOW RISK <130 <110 (OPTI MAL LDL) <100 ----- BORDE RLINE : 130-1 59 ----- HIGH RISK: >160 >130 A TRIGL YCERI DE RESUL T >400 INVAL IDATE S THE CALCU LATIO N FOR LDL FRACT IONAT ION - THE LDL RESUL T WILL NOT BE REPOR SAURABH. Not Available [facility] (Lab) [address] [place], [address], 05/11/2021 19:47:25 05/11/19 22 05/11/2021 LIPID PANEL cholesterol 149 mg/dL 140-19 9 NIH PIOTR NSUS RECOM MENDA TION FOR ERIN STERO L: ADULT CHILD LOW RISK: <200 <170 BORDE RLINE : <200- 239 ----- HIGH RISK: >240 >200 Not Available [facility] (Lab) [address] [place], [address], 05/11/2021 19:47:25 05/11/19 22 05/11/2021 LIPID PANEL triglyceride s 258 mg/dL 0-150 high NIH PIORT NSUS REPOR T RECOM MENDA TION FOR TRIGL YCERI OZIEL: ADULT CHILD LOW RISK: <150 ----- BODER LINE: 150-1 99 ----- HIGH RISK: >200 ----- Not Available [facility] (Lab) [address] [place], [address], 05/11/2021 19:47:25 05/11/19 22 05/11/2021 LIPID PANEL HDL cholesterol 38 mg/dL 40- low Not Available [facility] (Lab) [address] [place], [address], 05/11/2021 19:47:25 05/11/19 22 05/11/2021 COMPR EHENS CHARLOTTE METAB OLIC PANEL aspartate aminotransfe rase 23 U/L 15-37 Not Available [facility] (Lab) [address] [place], [address], 05/11/2021 19:47:20 05/11/19 22 05/11/2021 COMPR EHENS [place]LOTTE METAB OLIC PANEL agap 10.1 mmol/ L 14-22 low Not Available [facility] (Lab) [address] [place], [address], 05/11/2021 19:47:20 05/11/19 22 05/11/2021 COMPR EHENS [place]TE METAB OLIC PANEL glucose 73 mg/dL 70-99 Not Available [facility] (Lab) [address] [place], [address], 05/11/2021 19:47:20 05/11/19 22 05/11/2021 COMPR EHENS [place]TE METAB OLIC PANEL BUN 22 mg/dL 8-19 high Not Available [facility] (Lab) [address] [place], [address], 05/11/2021 19:47:20 05/11/19 22 05/11/2021 COMPR EHENS [place]TE METAB OLIC PANEL creatinine 0.74 mg/dL 0.66-1 .25 Not Available [facility] (Lab) [address] [place], [address], 05/11/2021 19:47:20 05/11/19 22 05/11/2021 COMPR EHENS CHARLOTTE METAB OLIC PANEL GFR >60 Refer ence Range : [place] ge GFR Healt hy Adult : >60 mL/mi n/1.7 3 m2 Chron ic Kidne y Disea se: 15-60 mL/mi n/1.7 3 m2 Kidne y Failu re: <15/m L/min /1.73 m2 www.n iddk. nih.g ov The MDRD study equat ion has not been valid ated in child carroll <18 years of age; pregn ant women ; the elder ly >85 years of age; or in some racia l or ethni c subgr oups, such as [facility] nics. Outsi de the valid ated karnia eters , estim ated GFR is less accur ate, requi ring clini melchor judgm ent on a case- by-ca se basis . Clini melchor inter preta tion for other races and ages must be made by the clini harley. The MDRD study equat ion has not been valid ated for the evalu ation of serum creat inine relat ed to nutri rex l statu s or medic ation usage . For perso ns <18 years of age, a pedia tric GFR calcu lator is avail able on the [facility] websi te: https :[email or web address] varela.niles meyer.o colette/pr ofess ional s/kdo qi/gf r_cal culat or Not Available [facility] (Lab) [address] [place], [address], 05/11/2021 19:47:20 05/11/19 22 05/11/2021 COMPR EHENS CHARLOTTE METAB OLIC PANEL alkaline phosphatase 39 U/L 38-[address] [facility] (Lab) [address] [place], [address], 05/11/2021 19:47:20 05/11/19 22 05/11/2021 COMPR EHENS [place]TE METAB OLIC PANEL alanine aminotransfe rase 21 U/L 0-35 Not Available [facility] (Lab) [address] [place], [address], 05/11/2021 19:47:20 05/11/19 22 05/11/2021 COMPR EHENS [place] METAB OLIC PANEL bilirubin, total 0.30 mg/dL 0.20-1 .30 Not Available [facility] (Lab) [address] [place], [address], 05/11/2021 19:47:20 05/11/19 22 05/11/2021 COMPR EHENS [place]LOTTE METAB OLIC PANEL calcium 9.1 mg/dL 8.4-10 .2 Not Available [facility] (Lab) [address] [place], [address], 05/11/2021 19:47:20 05/11/19 22 05/11/2021 COMPR EHENS CHARLOTTE METAB OLIC PANEL total protein 6.5 g/dL 6.3-8. 2 Not Available [facility] (Lab) [address] [place], [address], 05/11/2021 19:47:20 05/11/19 22 05/11/2021 COMPR EHENS [place]LOTTE METAB OLIC PANEL albumin 4.2 g/dL 3.0-4. 4 Not Available [facility] (Lab) [address] [place], [address], 05/11/2021 19:47:20 05/11/19 22 05/11/2021 COMPR EHENS CHARLOTTE METAB OLIC PANEL globulin 2.3 g/dL 2.6-4. 2 low Not Available [facility] (Lab) [address] [place], [address], 05/11/2021 19:47:20 05/11/19 22 05/11/2021 COMPR EHENS CHARLOTTE METAB OLIC PANEL A/G ratio 1.8 ratio 1.0-2. 0 Not Available [facility] (Lab) [address] [place], [address], 05/11/2021 19:47:20 05/11/19 22 05/11/2021 COMPR EHENS [place]TE METAB OLIC PANEL carbon dioxide 29 mmol/ L 22-30 Not Available [facility] (Lab) [address] [facility] [place], [address], 05/11/2021 19:47:20 05/11/19 22 05/11/2021 COMPR EHENS [place]LOTTE METAB OLIC PANEL sodium 137 mmol/ L 137-14 5 Not Available [facility] (Lab) [address] [place], [address], 05/11/2021 19:47:20 05/11/19 22 05/11/2021 COMPR EHENS [place]LOTTE METAB OLIC PANEL potassium 4.1 mmol/ L 3.5-5. 1 Not Available [facility] (Lab) [address] [place], [address], 05/11/2021 19:47:20 05/11/19 22 05/11/2021 COMPR EHENS [place]LOTTE METAB OLIC PANEL chloride 102 mmol/ L 98-107 Not Available [facility] (Lab) [address] [facility] [place], [address], 05/11/2021 19:47:20 05/11/19 22 05/11/2021 CBC/C OMPLE TE BLD COUNT W/DIF F white blood cells 5.0 x10'3 /uL 4.2-10 .8 Not Available [facility] (Lab) [address] [place], [address], 05/11/2021 13:43:22 05/11/19 22 05/11/2021 CBC/C OMPLE TE BLD COUNT W/DIF F red blood cells 4.28 x10'6 /uL 3.80-5 .20 Not Available [facility] (Lab) [address] [place], [address], 05/11/2021 13:43:22 05/11/19 22 05/11/2021 CBC/C OMPLE TE BLD COUNT W/DIF F hemoglobin 12.8 g/dL 12.0-1 5.6 Not Available [facility] (Lab) [address] [place], [address], 05/11/2021 13:43:22 05/11/19 22 05/11/2021 CBC/C OMPLE TE BLD COUNT W/DIF F hematocrit 40.0 % 35.7-4 5.7 Not Available [facility] (Lab) [address] [place], [address], 05/11/2021 13:43:22 05/11/19 22 05/11/2021 CBC/C OMPLE TE BLD COUNT W/DIF F mean red cell volume 93.5 fL 82.0-9 9.0 Not Available [facility] (Lab) [address] [place], [address], 05/11/2021 13:43:22 05/11/19 22 05/11/2021 CBC/C OMPLE TE BLD COUNT W/DIF F mean red cell hemoglobin 29.9 pg 27.0-3 3.0 Not Available [facility] (Lab) [address] [place], [address], 05/11/2021 13:43:22 05/11/19 22 05/11/2021 CBC/C OMPLE TE BLD COUNT W/DIF F mean RBC HGB concentratio n 32.0 g/dL 31.0-3 6.0 Not Available [facility] (Lab) [address] [place], [address], 05/11/2021 13:43:22 05/11/19 22 05/11/2021 CBC/C OMPLE TE BLD COUNT W/DIF F red cell distribution width 12.3 % 11.8-1 5.5 Not Available [facility] (Lab) [address] [facility] [place], [address], 05/11/2021 13:43:22 05/11/19 22 05/11/2021 CBC/C OMPLE TE BLD COUNT W/DIF F platelets 228 x10'3 /uL 150-40 0 Not Available [facility] (Lab) [address] [facility] [place], [address], 05/11/2021 13:43:22 05/11/19 22 05/11/2021 CBC/C OMPLE TE BLD COUNT W/DIF F mean platelet volume 9.4 fL 9.0-12 .4 Not Available [facility] (Lab) [address] [place], [address], 05/11/2021 13:43:22 05/11/19 22 05/11/2021 CBC/C OMPLE TE BLD COUNT W/DIF F neutrophils 66.4 % 39.0-7 2.0 Not Available [facility] (Lab) [address] [place], [address], 05/11/2021 13:43:22 05/11/19 22 05/11/2021 CBC/C OMPLE TE BLD COUNT W/DIF F lymphocytes 20.4 % 16.0-4 7.0 Not Available [facility] (Lab) [address] [place], [address], 05/11/2021 13:43:22 05/11/19 22 05/11/2021 CBC/C OMPLE TE BLD COUNT W/DIF F monocytes 9.6 % 5.0-12 .0 Not Available [facility] (Lab) [address] [place], [address], 05/11/2021 13:43:22 05/11/19 22 05/11/2021 CBC/C OMPLE TE BLD COUNT W/DIF F eosinophils 3.0 % 1.0-7. 0 Not Available [facility] (Lab) [address] [place], [address], 05/11/2021 13:43:22 05/11/19 22 05/11/2021 CBC/C OMPLE TE BLD COUNT W/DIF F basophils 0.4 % 0.0-2. 0 Not Available [facility] (Lab) [address] [place], [address], 05/11/2021 13:43:22 05/11/19 22 05/11/2021 CBC/C OMPLE TE BLD COUNT W/DIF F immature granulocytes 0.2 % 0.00-0 .50 Not Available [facility] (Lab) [address] [place], [address], 05/11/2021 13:43:22 05/11/19 22 05/11/2021 CBC/C OMPLE TE BLD COUNT W/DIF F neutrophils, absolute count 3.33 x10'3 /uL 1.5-8. 0 Not Available [facility] (Lab) [address] [place], [address], 05/11/2021 13:43:22 05/11/19 22 05/11/2021 CBC/C OMPLE TE BLD COUNT W/DIF F lymphocytes, absolute count 1.02 x10'3 /uL 1.07-3 .43 low Not Available [facility] (Lab) [address] [place], [address], 05/11/2021 13:43:22 05/11/19 22 05/11/2021 CBC/C OMPLE TE BLD COUNT W/DIF F monocytes, absolute count 0.48 x10'3 /uL 0.29-0 .99 Not Available [facility] (Lab) [address] [place], [address], 05/11/2021 13:43:22 05/11/19 22 05/11/2021 CBC/C OMPLE TE BLD COUNT W/DIF F eosinophils, absolute count 0.15 x10'3 /uL 0.02-0 .53 Not Available [facility] (Lab) [address] [place], [address], 05/11/2021 13:43:22 05/11/19 22 05/11/2021 CBC/C OMPLE TE BLD COUNT W/DIF F basophils, absolute count 0.02 x10'3 /uL 0.01-0 .08 Not Available [facility] (Lab) [address] [place], [address], 05/11/2021 13:43:22 05/11/19 22 05/11/2021 CBC/C OMPLE TE BLD COUNT W/DIF F immature granulocytes ,absolute 0.01 x10'3 /uL 0.00-0 .05 Not Available [facility] (Lab) [address] [place], [address], 05/11/2021 13:43:22 05/11/19 22 05/11/2021 CBC/C OMPLE TE BLD COUNT W/DIF F nucleated red blood cells 0.0 % -0 Not Available [facility] (Lab) [address] [place], [address], 05/11/2021 13:43:22 05/11/19 22 05/11/2021 CBC/C OMPLE TE BLD COUNT W/DIF F NRBC# 0.00 x10'3 /uL Not Available [facility] (Lab) [address] [place], [address], 05/11/2021 13:43:22 10/20/19 22 10/19/2021 T3 FREE free T3 3.3 pg/mL 2.77-5 .27 Not Available [facility] (Lab) [address] [place], [address], 10/19/2021 21:28:26 10/20/19 22 10/19/2021 TSH thyroid-stim ulating hormone 0.232 uIU/m L 0.465- 4.680 low Not Available [facility] (Lab) [address] [place], [address], 10/19/2021 21:36:31 10/20/19 22 10/19/2021 T4 FREE free T4 1.52 NG/dL 0.78-2 .19 Not Available [facility] (Lab) [address] [place], [address], 10/19/2021 21:28:30 10/20/19 22 10/19/2021 LIPID PANEL cholesterol 129 mg/dL 140-19 9 low NIH PIOTR NSUS RECOM MENDA TION FOR ERIN STERO L: ADULT CHILD LOW RISK: <200 <170 BORDE RLINE : <200- 239 ----- HIGH RISK: >240 >200 Not Available [facility] (Lab) [address] [place], [address], 10/19/2021 21:24:36 10/20/19 22 10/19/2021 LIPID PANEL triglyceride s 183 mg/dL 0-150 high NIH PIOTR NSUS REPOR T RECOM MENDA TION FOR TRIGL YCERI OZIEL: ADULT CHILD LOW RISK: <150 ----- BODER LINE: 150-1 99 ----- HIGH RISK: >200 ----- Not Available [facility] (Lab) [address] [place], [address], 10/19/2021 21:24:36 10/20/19 22 10/19/2021 LIPID PANEL HDL cholesterol 38 mg/dL 40- low Not Available [facility] (Lab) [address] [place], [address], 10/19/2021 21:24:36 10/20/19 22 10/19/2021 LIPID PANEL LDL cholesterol, calculated 54 mg/dL 0-130 NIH PIOTR NSUS REPOR T RECOM MENDA TIONS FOR LDL: ADULT CHILD LOW RISK <130 <110 (OPTI MAL LDL) <100 ----- BORDE RLINE : 130-1 59 ----- HIGH RISK: >160 >130 A TRIGL YCERI DE RESUL T >400 INVAL IDATE S THE CALCU LATIO N FOR LDL FRACT IONAT ION - THE LDL RESUL T WILL NOT BE REPOR SAURABH. Not Available [facility] (Lab) [address] [place], [address], 10/19/2021 21:24:36 10/20/19 22 10/19/2021 COMPR EHENS [place] METAB OLIC PANEL anion gap 11.5 mmol/ L 14-22 low Not Available [facility] (Lab) [address] [place], [address], 10/19/2021 21:24:33 10/20/19 22 10/19/2021 COMPR EHENS [place] METAB OLIC PANEL sodium 138 mmol/ L 137-14 5 Not Available [facility] (Lab) [address] [place], [address], 10/19/2021 21:24:33 10/20/19 22 10/19/2021 COMPR EHENS [place] METAB OLIC PANEL potassium 4.5 mmol/ L 3.5-5. 1 Not Available [facility] (Lab) [address] [place], [address], 10/19/2021 21:24:33 10/20/19 22 10/19/2021 COMPR EHENS [place] METAB OLIC PANEL chloride 104 mmol/ L 98-107 Not Available [facility] (Lab) [address] [place], [address], 10/19/2021 21:24:33 10/20/19 22 10/19/2021 COMPR EHENS [place] METAB OLIC PANEL carbon dioxide 27 mmol/ L 22-30 Not Available [facility] (Lab) [address] [place], [address], 10/19/2021 21:24:33 10/20/19 22 10/19/2021 COMPR EHENS [place] METAB OLIC PANEL glucose 73 mg/dL 70-99 Not Available [facility] (Lab) [address] [place], [address], 10/19/2021 21:24:33 10/20/19 22 10/19/2021 COMPR EHENS [place] METAB OLIC PANEL BUN 24 mg/dL 8-19 high Not Available [facility] (Lab) [address] [place], [address], 10/19/2021 21:24:33 10/20/19 22 10/19/2021 COMPR EHENS [place] METAB OLIC PANEL creatinine 1.10 mg/dL 0.66-1 .25 Not Available [facility] (Lab) [address] [place], [address], 10/19/2021 21:24:33 10/20/19 22 10/19/2021 COMPR EHENS [place] METAB OLIC PANEL GFR 49 Refer ence Range : [place] ge GFR Healt hy Adult : >60 mL/mi n/1.7 3 m2 Chron ic Kidne y Disea se: 15-60 mL/mi n/1.7 3 m2 Kidne y Failu re: <15/m L/min /1.73 m2 www.n iddk. nih.g ov The MDRD study equat ion has not been valid ated in child carroll <18 years of age; pregn ant women ; the elder ly >85 years of age; or in some racia l or ethni c subgr oups, such as [facility] nics. Outsi de the valid ated karina eters , estim ated GFR is less accur ate, requi ring clini melchor judgm ent on a case- by-ca se basis . Clini melchor inter preta tion for other races and ages must be made by the clini harley. The MDRD study equat ion has not been valid ated for the evalu ation of serum creat inine relat ed to nutri rex l statu s or medic ation usage . For perso ns <18 years of age, a pedia tric GFR calcu lator is avail able on the [facility] websi te: https :[email or web address] w.niles meyer.o rg/pr ofess ional s/kdo qi/gf r_cal culat or Not Available [facility] (Lab) [address] [place], [address], 10/19/2021 21:24:33 10/20/19 22 10/19/2021 COMPR EHENS [place]TE METAB OLIC PANEL alkaline phosphatase 45 U/L 38-[address] [facility] (Lab) [address] [place], [address], 10/19/2021 21:24:33 10/20/19 22 10/19/2021 COMPR EHENS [place] METAB OLIC PANEL alanine aminotransfe rase 21 U/L 0-35 Not Available [facility] (Lab) [address] [place], [address], 10/19/2021 21:24:33 10/20/19 22 10/19/2021 COMPR EHENS [place] METAB OLIC PANEL aspartate aminotransfe rase 23 U/L 15-37 Not Available [facility] (Lab) [address] [place], [address], 10/19/2021 21:24:33 10/20/19 22 10/19/2021 COMPR EHENS [place] METAB OLIC PANEL bilirubin, total 0.20 mg/dL 0.20-1 .30 Not Available [facility] (Lab) [address] [place], [address], 10/19/2021 21:24:33 10/20/19 22 10/19/2021 COMPR EHENS [place] METAB OLIC PANEL calcium 9.7 mg/dL 8.4-10 .2 Not Available [facility] (Lab) [address] [place], [address], 10/19/2021 21:24:33 10/20/19 22 10/19/2021 COMPR EHENS [place] METAB OLIC PANEL total protein 6.7 g/dL 6.3-8. 2 Not Available [facility] (Lab) [address] [place], [address], 10/19/2021 21:24:33 10/20/19 22 10/19/2021 COMPR EHENS [place] METAB OLIC PANEL albumin 4.2 g/dL 3.0-4. 4 Not Available [facility] (Lab) [address] [place], [address], 10/19/2021 21:24:33 10/20/19 22 10/19/2021 COMPR EHENS [place] METAB OLIC PANEL globulin 2.5 g/dL 2.6-4. 2 low Not Available [facility] (Lab) [address] [place], [address], 10/19/2021 21:24:33 10/20/19 22 10/19/2021 COMPR EHENS [place] METAB OLIC PANEL A/G ratio 1.7 ratio 1.0-2. 0 Not Available [facility] (Lab) [address] [place], [address], 10/19/2021 21:24:33 10/20/19 22 10/19/2021 CBC/C OMPLE TE BLD COUNT W/DIF F hematocrit 39.7 % 35.7-4 5.7 Not Available [facility] (Lab) [address] [place], [address], 10/19/2021 20:00:16 10/20/19 22 10/19/2021 CBC/C OMPLE TE BLD COUNT W/DIF F white blood cells 6.3 x10'3 /uL 4.2-10 .8 Not Available [facility] (Lab) [address] [place], [address], 10/19/2021 20:00:16 10/20/19 22 10/19/2021 CBC/C OMPLE TE BLD COUNT W/DIF F red blood cells 4.37 x10'6 /uL 3.80-5 .20 Not Available [facility] (Lab) [address] [place], [address], 10/19/2021 20:00:16 10/20/19 22 10/19/2021 CBC/C OMPLE TE BLD COUNT W/DIF F hemoglobin 13.0 g/dL 12.0-1 5.6 Not Available [facility] (Lab) [address] [place], [address], 10/19/2021 20:00:16 10/20/19 22 10/19/2021 CBC/C OMPLE TE BLD COUNT W/DIF F mean red cell volume 90.8 fL 82.0-9 9.0 Not Available [facility] (Lab) [address] [place], [address], 10/19/2021 20:00:16 10/20/19 22 10/19/2021 CBC/C OMPLE TE BLD COUNT W/DIF F mean red cell hemoglobin 29.7 pg 27.0-3 3.0 Not Available [facility] (Lab) [address] [place], [address], 10/19/2021 20:00:16 10/20/19 22 10/19/2021 CBC/C OMPLE TE BLD COUNT W/DIF F mean RBC HGB concentratio n 32.7 g/dL 31.0-3 6.0 Not Available [facility] (Lab) [address] [place], [address], 10/19/2021 20:00:16 10/20/19 22 10/19/2021 CBC/C OMPLE TE BLD COUNT W/DIF F red cell distribution width 12.8 % 11.8-1 5.5 Not Available [facility] (Lab) [address] [place], [address], 10/19/2021 20:00:16 10/20/19 22 10/19/2021 CBC/C OMPLE TE BLD COUNT W/DIF F platelets 205 x10'3 /uL 150-40 0 Not Available [facility] (Lab) [address] [place], [address], 10/19/2021 20:00:16 10/20/19 22 10/19/2021 CBC/C OMPLE TE BLD COUNT W/DIF F mean platelet volume 9.7 fL 9.0-12 .4 Not Available [facility] (Lab) [address] [place], [address], 10/19/2021 20:00:16 10/20/19 22 10/19/2021 CBC/C OMPLE TE BLD COUNT W/DIF F neutrophils 63.4 % 39.0-7 2.0 Not Available [facility] (Lab) [address] [place], [address], 10/19/2021 20:00:16 10/20/19 22 10/19/2021 CBC/C OMPLE TE BLD COUNT W/DIF F lymphocytes 20.7 % 16.0-4 7.0 Not Available [facility] (Lab) [address] [place], [address], 10/19/2021 20:00:16 10/20/19 22 10/19/2021 CBC/C OMPLE TE BLD COUNT W/DIF F monocytes 11.7 % 5.0-12 .0 Not Available [facility] (Lab) [address] [place], [address], 10/19/2021 20:00:16 10/20/19 22 10/19/2021 CBC/C OMPLE TE BLD COUNT W/DIF F eosinophils 3.6 % 1.0-7. 0 Not Available [facility] (Lab) [address] [place], [address], 10/19/2021 20:00:16 10/20/19 22 10/19/2021 CBC/C OMPLE TE BLD COUNT W/DIF F basophils 0.3 % 0.0-2. 0 Not Available [facility] (Lab) [address] [place], [address], 10/19/2021 20:00:16 10/20/19 22 10/19/2021 CBC/C OMPLE TE BLD COUNT W/DIF F immature granulocytes 0.3 % 0.00-0 .50 Not Available [facility] (Lab) [address] [place], [address], 10/19/2021 20:00:16 10/20/19 22 10/19/2021 CBC/C OMPLE TE BLD COUNT W/DIF F neutrophils, absolute count 4.02 x10'3 /uL 1.5-8. 0 Not Available [facility] (Lab) [address] [place], [address], 10/19/2021 20:00:16 10/20/19 22 10/19/2021 CBC/C OMPLE TE BLD COUNT W/DIF F lymphocytes, absolute count 1.31 x10'3 /uL 1.07-3 .43 Not Available [facility] (Lab) [address] [place], [address], 10/19/2021 20:00:16 10/20/19 22 10/19/2021 CBC/C OMPLE TE BLD COUNT W/DIF F monocytes, absolute count 0.74 x10'3 /uL 0.29-0 .99 Not Available [facility] (Lab) [address] [place], [address], 10/19/2021 20:00:16 10/20/19 22 10/19/2021 CBC/C OMPLE TE BLD COUNT W/DIF F eosinophils, absolute count 0.23 x10'3 /uL 0.02-0 .53 Not Available [facility] (Lab) [address] [place], [address], 10/19/2021 20:00:16 10/20/19 22 10/19/2021 CBC/C OMPLE TE BLD COUNT W/DIF F basophils, absolute count 0.02 x10'3 /uL 0.01-0 .08 Not Available [facility] (Lab) [address] [place], [address], 10/19/2021 20:00:16 10/20/19 22 10/19/2021 CBC/C OMPLE TE BLD COUNT W/DIF F immature granulocytes ,absolute 0.02 x10'3 /uL 0.00-0 .05 Not Available [facility] (Lab) [address] [place], [address], 10/19/2021 20:00:16 10/20/19 22 10/19/2021 CBC/C OMPLE TE BLD COUNT W/DIF F nucleated red blood cells 0.0 % -0 Not Available [facility] (Lab) [address] [place], [address], 10/19/2021 20:00:16 10/20/19 22 10/19/2021 CBC/C OMPLE TE BLD COUNT W/DIF F NRBC# 0.00 x10'3 /uL Not Available [facility] (Lab) [address] [place], [address], 10/19/2021 20:00:16 04/28/19 23 04/28/2022 TSH thyroid-stim ulating hormone 0.540 uIU/m L 0.465- 4.680 Not Available [facility] (Lab) [address] [place], [address], 04/28/2022 20:46:01 04/28/19 23 04/28/2022 T4 FREE free T4 1.54 NG/dL 0.78-2 .19 Not Available [facility] (Lab) [address] [place], [address], 04/28/2022 20:37:05 04/28/19 23 04/28/2022 T3 FREE free T3 3.8 pg/mL 2.77-5 .27 Not Available [facility] (Lab) [address] [place], [address], 04/28/2022 20:34:23 04/28/19 23 04/28/2022 LIPID PANEL cholesterol 145 mg/dL 140-19 9 NIH PIOTR NSUS RECOM MENDA TION FOR ERIN STERO L: ADULT CHILD LOW RISK: <200 <170 BORDE RLINE : <200- 239 ----- HIGH RISK: >240 >200 Not Available [facility] (Lab) [address] [place], [address], 04/28/2022 20:29:30 04/28/19 23 04/28/2022 LIPID PANEL triglyceride s 212 mg/dL 0-150 high NIH PIOTR NSUS REPOR T RECOM MENDA TION FOR TRIGL YCERI OZIEL: ADULT CHILD LOW RISK: <150 ----- BODER LINE: 150-1 99 ----- HIGH RISK: >200 ----- Not Available [facility] (Lab) [address] [place], [address], 04/28/2022 20:29:30 04/28/19 23 04/28/2022 LIPID PANEL HDL cholesterol 41 mg/dL 40- Not Available [facility] (Lab) [address] [place], [address], 04/28/2022 20:29:30 04/28/19 23 04/28/2022 LIPID PANEL LDL cholesterol, calculated 62 mg/dL 0-130 NIH PIOTR NSUS REPOR T RECOM MENDA TIONS FOR LDL: ADULT CHILD LOW RISK <130 <110 (OPTI MAL LDL) <100 ----- BORDE RLINE : 130-1 59 ----- HIGH RISK: >160 >130 A TRIGL YCERI DE RESUL T >400 INVAL IDATE S THE CALCU LATIO N FOR LDL FRACT IONAT ION - THE LDL RESUL T WILL NOT BE REPOR SAURABH. Not Available [facility] (Lab) [address] [place], [address], 04/28/2022 20:29:30 04/28/19 23 04/28/2022 COMPR EHENS [place]TE METAB OLIC PANEL anion gap 12.3 mmol/ L 14-22 low Not Available [facility] (Lab) [address] [place], [address], 04/28/2022 20:29:25 04/28/19 23 04/28/2022 COMPR EHENS [place] METAB OLIC PANEL sodium 142 mmol/ L 137-14 5 Not Available [facility] (Lab) [address] [place], [address], 04/28/2022 20:29:25 04/28/19 23 04/28/2022 COMPR EHENS [place] METAB OLIC PANEL potassium 4.3 mmol/ L 3.5-5. 1 Not Available [facility] (Lab) [address] [place], [address], 04/28/2022 20:29:25 04/28/19 23 04/28/2022 COMPR EHENS [place] METAB OLIC PANEL chloride 102 mmol/ L 98-107 Not Available [facility] (Lab) [address] [place], [address], 04/28/2022 20:29:25 04/28/19 23 04/28/2022 COMPR EHENS [place] METAB OLIC PANEL carbon dioxide 32 mmol/ L 22-30 high Not Available [facility] (Lab) [address] [place], [address], 04/28/2022 20:29:25 04/28/19 23 04/28/2022 COMPR EHENS [place] METAB OLIC PANEL glucose 80 mg/dL 70-99 Not Available [facility] (Lab) [address] [place], [address], 04/28/2022 20:29:25 04/28/19 23 04/28/2022 COMPR EHENS [place] METAB OLIC PANEL BUN 19 mg/dL 8-19 Not Available [facility] (Lab) [address] [place], [address], 04/28/2022 20:29:25 04/28/19 23 04/28/2022 COMPR EHENS [place] METAB OLIC PANEL creatinine 0.84 mg/dL 0.66-1 .25 Not Available [facility] (Lab) [address] [place], [address], 04/28/2022 20:29:25 04/28/19 23 04/28/2022 COMPR EHENS [place] METAB OLIC PANEL GFR >60 Refer ence Range : [place] ge GFR Healt hy Adult : >60 mL/mi n/1.7 3 m2 Chron ic Kidne y Disea se: 15-60 mL/mi n/1.7 3 m2 Kidne y Failu re: <15/m L/min /1.73 m2 www.n iddk. nih.g ov The MDRD study equat ion has not been valid ated in child carroll <18 years of age; pregn ant women ; the elder ly >85 years of age; or in some racia l or ethni c subgr oups, such as Hispa nics. Outsi de the valid ated karina eters , estim ated GFR is less accur ate, requi ring clini melchor judgm ent on a case- by-ca se basis . Clini melchor inter preta tion for other races and ages must be made by the clini harley. The MDRD study equat ion has not been valid ated for the evalu ation of serum creat inine relat ed to nutri rex l statu s or medic ation usage . For perso ns <18 years of age, a pedia tric GFR calcu lator is avail able on the [facility] websi te: https :[email or web address] varela.niles meyer.o colette/pr ofess ional s/kdo qi/gf r_cal culat or Not Available [facility] (Lab) [address] [place], [address], 04/28/2022 20:29:25 04/28/19 23 04/28/2022 COMPR EHENS [place]TE METAB OLIC PANEL alkaline phosphatase 41 U/L 38-[address] [facility] (Lab) [address] [place], [address], 04/28/2022 20:29:25 04/28/19 23 04/28/2022 COMPR EHENS [place] METAB OLIC PANEL alanine aminotransfe rase 30 U/L 0-35 Not Available [facility] (Lab) [address] [place], [address], 04/28/2022 20:29:25 04/28/19 23 04/28/2022 COMPR EHENS [place] METAB OLIC PANEL aspartate aminotransfe rase 23 U/L 15-37 Not Available [facility] (Lab) [address] [place], [address], 04/28/2022 20:29:25 04/28/19 23 04/28/2022 COMPR EHENS [place] METAB OLIC PANEL bilirubin, total 0.50 mg/dL 0.20-1 .30 Not Available [facility] (Lab) [address] [place], [address], 04/28/2022 20:29:25 04/28/19 23 04/28/2022 COMPR EHENS [place]TE METAB OLIC PANEL calcium 9.8 mg/dL 8.4-10 .2 Not Available [facility] (Lab) [address] [place], [address], 04/28/2022 20:29:25 04/28/19 23 04/28/2022 COMPR EHENS [place] METAB OLIC PANEL total protein 7.1 g/dL 6.3-8. 2 Not Available [facility] (Lab) [address] [place], [address], 04/28/2022 20:29:25 04/28/19 23 04/28/2022 COMPR EHENS [place] METAB OLIC PANEL albumin 4.5 g/dL 3.0-4. 4 high Not Available [facility] (Lab) [address] [place], [address], 04/28/2022 20:29:25 04/28/19 23 04/28/2022 COMPR EHENS [place]TE METAB OLIC PANEL globulin 2.6 g/dL 2.6-4. 2 Not Available [facility] (Lab) [address] [place], [address], 04/28/2022 20:29:25 04/28/19 23 04/28/2022 COMPR EHENS [place]TE METAB OLIC PANEL A/G ratio 1.7 ratio 1.0-2. 0 Not Available [facility] (Lab) [address] [place], [address], 04/28/2022 20:29:25 04/28/19 23 04/28/2022 CBC/C OMPLE TE BLD COUNT W/DIF F mean red cell hemoglobin 29.6 pg 27.0-3 3.0 Not Available [facility] (Lab) [address] [place], [address], 04/28/2022 19:11:32 04/28/19 23 04/28/2022 CBC/C OMPLE TE BLD COUNT W/DIF F white blood cells 6.4 x10'3 /uL 4.2-10 .8 Not Available [facility] (Lab[facility] [address] [facility] [place], [address], 04/28/2022 19:11:32 04/28/19 23 04/28/2022 CBC/C OMPLE TE BLD COUNT W/DIF F red blood cells 4.60 x10'6 /uL 3.80-5 .20 Not Available [facility] (Lab) [address] [facility] [place], [address], 04/28/2022 19:11:32 04/28/19 23 04/28/2022 CBC/C OMPLE TE BLD COUNT W/DIF F hemoglobin 13.6 g/dL 12.0-1 5.6 Not Available [facility] (Lab) [address] [place], [address], 04/28/2022 19:11:32 04/28/19 23 04/28/2022 CBC/C OMPLE TE BLD COUNT W/DIF F hematocrit 41.5 % 35.7-4 5.7 Not Available [facility] (Lab) [address] [place], [address], 04/28/2022 19:11:32 04/28/19 23 04/28/2022 CBC/C OMPLE TE BLD COUNT W/DIF F mean red cell volume 90.2 fL 82.0-9 9.0 Not Available [facility] (Lab) [address] [place], [address], 04/28/2022 19:11:32 04/28/19 23 04/28/2022 CBC/C OMPLE TE BLD COUNT W/DIF F mean RBC HGB concentratio n 32.8 g/dL 31.0-3 6.0 Not Available [facility] (Lab) [address] [facility] [place], [address], 04/28/2022 19:11:32 04/28/19 23 04/28/2022 CBC/C OMPLE TE BLD COUNT W/DIF F red cell distribution width 12.6 % 11.8-1 5.5 Not Available [facility] (Lab) [address] [place], [address], 04/28/2022 19:11:32 04/28/19 23 04/28/2022 CBC/C OMPLE TE BLD COUNT W/DIF F platelets 219 x10'3 /uL 150-40 0 Not Available [facility] (Lab) [address] [place], [address], 04/28/2022 19:11:32 04/28/19 23 04/28/2022 CBC/C OMPLE TE BLD COUNT W/DIF F mean platelet volume 9.4 fL 9.0-12 .4 Not Available [facility] (Lab) [address] [place], [address], 04/28/2022 19:11:32 04/28/19 23 04/28/2022 CBC/C OMPLE TE BLD COUNT W/DIF F neutrophils 69.6 % 39.0-7 2.0 Not Available [facility] (Lab) [address] [place], [address], 04/28/2022 19:11:32 04/28/1904/28/2022 CBC/C OMPLE TE BLD COUNT W/DIF F lymphocytes 19.3 % 16.0-4 7.0 Not Available [facility] (Lab) [address] [place], [address], 04/28/2022 19:11:32 04/28/19 23 04/28/2022 CBC/C OMPLE TE BLD COUNT W/DIF F monocytes 6.9 % 5.0-12 .0 Not Available [facility] (Lab) [address] [place], [address], 04/28/2022 19:11:32 04/28/19 23 04/28/2022 CBC/C OMPLE TE BLD COUNT W/DIF F eosinophils 3.1 % 1.0-7. 0 Not Available [facility] (Lab) [address] [place], [address], 04/28/2022 19:11:32 04/28/1904/28/2022 CBC/C OMPLE TE BLD COUNT W/DIF F basophils 0.8 % 0.0-2. 0 Not Available [facility] (Lab) [address] [place], [address], 04/28/2022 19:11:32 04/28/1904/28/2022 CBC/C OMPLE TE BLD COUNT W/DIF F immature granulocytes 0.3 % 0.00-0 .50 Not Available [facility] (Lab) [address] [place], [address], 04/28/2022 19:11:32 04/28/1904/28/2022 CBC/C OMPLE TE BLD COUNT W/DIF F neutrophils, absolute count 4.44 x10'3 /uL 1.5-8. 0 Not Available [facility] (Lab) [address] [place], [address], 04/28/2022 19:11:32 04/28/1904/28/2022 CBC/C OMPLE TE BLD COUNT W/DIF F lymphocytes, absolute count 1.23 x10'3 /uL 1.07-3 .43 Not Available [facility] (Lab) [address] [place], [address], 04/28/2022 19:11:32 04/28/1904/28/2022 CBC/C OMPLE TE BLD COUNT W/DIF F monocytes, absolute count 0.44 x10'3 /uL 0.29-0 .99 Not Available [facility] (Lab) [address] [place], [address], 04/28/2022 19:11:32 04/28/19 23 04/28/2022 CBC/C OMPLE TE BLD COUNT W/DIF F eosinophils, absolute count 0.20 x10'3 /uL 0.02-0 .53 Not Available [facility] (Lab) [address] [place], [address], 04/28/2022 19:11:32 04/28/19 23 04/28/2022 CBC/C OMPLE TE BLD COUNT W/DIF F basophils, absolute count 0.05 x10'3 /uL 0.01-0 .08 Not Available [facility] (Lab) [address] [place], [address], 04/28/2022 19:11:32 04/28/19 23 04/28/2022 CBC/C OMPLE TE BLD COUNT W/DIF F immature granulocytes ,absolute 0.02 x10'3 /uL 0.00-0 .05 Not Available [facility] (Lab) [address] [place], [address], 04/28/2022 19:11:32 04/28/19 23 04/28/2022 CBC/C OMPLE TE BLD COUNT W/DIF F nucleated red blood cells 0.0 % -0 Not Available [facility] (Lab) [address] [place], [address], 04/28/2022 19:11:32 04/28/19 23 04/28/2022 CBC/C OMPLE TE BLD COUNT W/DIF F NRBC# 0.00 x10'3 /uL Not Available [facility] (Lab) [address] [place], [address], 04/28/2022 19:11:32 11/25/19 23 11/24/2022 CBC/C OMPLE TE BLD COUNT W/DIF F white blood cells 5.2 x10'3 /uL 4.2-10 .8 Not Available [facility] (Lab) [address] [place], [address], 11/24/2022 12:45:47 11/25/19 23 11/24/2022 CBC/C OMPLE TE BLD COUNT W/DIF F red blood cells 4.81 x10'6 /uL 3.80-5 .20 Not Available [facility] (Lab) [address] [place], [address], 11/24/2022 12:45:47 11/25/19 23 11/24/2022 CBC/C OMPLE TE BLD COUNT W/DIF F hemoglobin 14.3 g/dL 12.0-1 5.6 Not Available [facility] (Lab) [address] [place], [address], 11/24/2022 12:45:47 11/25/19 23 11/24/2022 CBC/C OMPLE TE BLD COUNT W/DIF F hematocrit 43.1 % 35.7-4 5.7 Not Available [facility] (Lab) [address] [place], [address], 11/24/2022 12:45:47 11/25/19 23 11/24/2022 CBC/C OMPLE TE BLD COUNT W/DIF F mean red cell volume 89.6 fL 82.0-9 9.0 Not Available [facility] (Lab) [address] [place], [address], 11/24/2022 12:45:47 11/25/19 23 11/24/2022 CBC/C OMPLE TE BLD COUNT W/DIF F mean red cell hemoglobin 29.7 pg 27.0-3 3.0 Not Available [facility] (Lab) [address] [facility] [place], [address], 11/24/2022 12:45:47 11/25/19 23 11/24/2022 CBC/C OMPLE TE BLD COUNT W/DIF F mean RBC HGB concentratio n 33.2 g/dL 31.0-3 6.0 Not Available [facility] (Lab) [address] [facility] [place], [address], 11/24/2022 12:45:47 11/25/19 23 11/24/2022 CBC/C OMPLE TE BLD COUNT W/DIF F red cell distribution width 12.8 % 11.8-1 5.5 Not Available [facility] (Lab) [address] [place], [address], 11/24/2022 12:45:47 11/25/19 23 11/24/2022 CBC/C OMPLE TE BLD COUNT W/DIF F platelets 198 x10'3 /uL 150-40 0 Not Available [facility] (Lab) [address] [place], [address], 11/24/2022 12:45:47 11/25/19 23 11/24/2022 CBC/C OMPLE TE BLD COUNT W/DIF F mean platelet volume 9.4 fL 9.0-12 .4 Not Available [facility] (Lab) [address] [place], [address], 11/24/2022 12:45:47 11/25/19 23 11/24/2022 CBC/C OMPLE TE BLD COUNT W/DIF F neutrophils 65.1 % 39.0-7 2.0 Not Available [facility] (Lab) [address] [place], [address], 11/24/2022 12:45:47 11/25/19 23 11/24/2022 CBC/C OMPLE TE BLD COUNT W/DIF F lymphocytes 20.1 % 16.0-4 7.0 Not Available [facility] (Lab) [address] [place], [address], 11/24/2022 12:45:47 11/25/1911/24/2022 CBC/C OMPLE TE BLD COUNT W/DIF F monocytes 8.4 % 5.0-12 .0 Not Available [facility] (Lab) [address] [place], [address], 11/24/2022 12:45:47 11/25/19 23 11/24/2022 CBC/C OMPLE TE BLD COUNT W/DIF F eosinophils 5.4 % 1.0-7. 0 Not Available [facility] (Lab) [address] [place], [address], 11/24/2022 12:45:47 11/25/19 23 11/24/2022 CBC/C OMPLE TE BLD COUNT W/DIF F basophils 0.8 % 0.0-2. 0 Not Available [facility] (Lab) [address] [place], [address], 11/24/2022 12:45:47 11/25/1911/24/2022 CBC/C OMPLE TE BLD COUNT W/DIF F immature granulocytes 0.2 % 0.00-0 .50 Not Available [facility] (Lab) [address] [place], [address], 11/24/2022 12:45:47 11/25/19 23 11/24/2022 CBC/C OMPLE TE BLD COUNT W/DIF F neutrophils, absolute count 3.40 x10'3 /uL 1.5-8. 0 Not Available [facility] (Lab) [address] [place], [address], 11/24/2022 12:45:47 11/25/19 23 11/24/2022 CBC/C OMPLE TE BLD COUNT W/DIF F lymphocytes, absolute count 1.05 x10'3 /uL 1.07-3 .43 low Not Available [facility] (Lab) [address] [place], [address], 11/24/2022 12:45:47 11/25/19 23 11/24/2022 CBC/C OMPLE TE BLD COUNT W/DIF F monocytes, absolute count 0.44 x10'3 /uL 0.29-0 .99 Not Available [facility] (Lab) [address] [place], [address], 11/24/2022 12:45:47 11/25/19 23 11/24/2022 CBC/C OMPLE TE BLD COUNT W/DIF F eosinophils, absolute count 0.28 x10'3 /uL 0.02-0 .53 Not Available [facility] (Lab) [address] [place], [address], 11/24/2022 12:45:47 11/25/19 23 11/24/2022 CBC/C OMPLE TE BLD COUNT W/DIF F basophils, absolute count 0.04 x10'3 /uL 0.01-0 .08 Not Available [facility] (Lab) [address] [place], [address], 11/24/2022 12:45:47 11/25/19 23 11/24/2022 CBC/C OMPLE TE BLD COUNT W/DIF F immature granulocytes ,absolute 0.01 x10'3 /uL 0.00-0 .05 Not Available [facility] (Lab) [address] [place], [address], 11/24/2022 12:45:47 11/25/19 23 11/24/2022 CBC/C OMPLE TE BLD COUNT W/DIF F nucleated red blood cells 0.0 % -0 Not Available [facility] (Lab) [address] [place], [address], 11/24/2022 12:45:47 08/07/11 2211/24/2022 CBC/C OMPLE TE BLD COUNT W/DIF F NRBC# 0.00 x10'3 /uL Not Available [facility] (Lab) [address] [place], [address], 11/24/2022 12:45:47 11/25/19 23 11/24/2022 LIPID PANEL cholesterol 140 mg/dL 140-19 9 NIH PIOTR NSUS RECOM MENDA TION FOR ERIN STERO L: ADULT CHILD LOW RISK: <200 <170 BORDE RLINE : <200- 239 ----- HIGH RISK: >240 >200 Not Available [facility] (Lab) [address] [place], [address], 11/24/2022 13:12:42 11/25/19 23 11/24/2022 LIPID PANEL triglyceride s 231 mg/dL 0-150 high NIH PIOTR NSUS REPOR T RECOM MENDA TION FOR TRIGL YCERI OZIEL: ADULT CHILD LOW RISK: <150 ----- BODER LINE: 150-1 99 ----- HIGH RISK: >200 ----- Not Available [facility] (Lab) [address] [place], [address], 11/24/2022 13:12:42 11/25/19 23 11/24/2022 LIPID PANEL HDL cholesterol 35 mg/dL 40- low Not Available [facility] (Lab) [address] [place], [address], 11/24/2022 13:12:42 11/25/19 23 11/24/2022 LIPID PANEL LDL cholesterol, calculated 59 mg/dL 0-130 NIH PIOTR NSUS REPOR T RECOM MENDA TIONS FOR LDL: ADULT CHILD LOW RISK <130 <110 (OPTI MAL LDL) <100 ----- BORDE RLINE : 130-1 59 ----- HIGH RISK: >160 >130 A TRIGL YCERI DE RESUL T >400 INVAL IDATE S THE CALCU LATIO N FOR LDL FRACT IONAT ION - THE LDL RESUL T WILL NOT BE REPOR SAURABH. Not Available [facility] (Lab) [address] [place], [address], 11/24/2022 13:12:42 11/25/19 23 11/24/2022 COMPR EHENS [place] METAB OLIC PANEL sodium 140 mmol/ L 137-14 5 Not Available [facility] (Lab) [address] [place], [address], 11/24/2022 13:13:03 11/25/19 23 11/24/2022 COMPR EHENS [place] METAB OLIC PANEL potassium 4.4 mmol/ L 3.5-5. 1 Not Available [facility] (Lab) [address] [place], [address], 11/24/2022 13:13:03 11/25/19 23 11/24/2022 COMPR EHENS [place] METAB OLIC PANEL chloride 103 mmol/ L 98-107 Not Available [facility] (Lab) [address] [place], [address], 11/24/2022 13:13:03 11/25/19 23 11/24/2022 COMPR EHENS [place] METAB OLIC PANEL carbon dioxide 29 mmol/ L 22-30 Not Available [facility] (Lab) [address] [place], [address], 11/24/2022 13:13:03 11/25/19 23 11/24/2022 COMPR EHENS [place] METAB OLIC PANEL anion gap 12.4 mmol/ L 14-22 low Not Available [facility] (Lab) [address] [place], [address], 11/24/2022 13:13:03 11/25/19 23 11/24/2022 COMPR EHENS [place] METAB OLIC PANEL glucose 94 mg/dL 70-99 Not Available [facility] (Lab) [address] [place], [address], 11/24/2022 13:13:03 11/25/19 23 11/24/2022 COMPR EHENS [place] METAB OLIC PANEL BUN 27 mg/dL 8-19 high Not Available [facility] (Lab) [address] [place], [address], 11/24/2022 13:13:03 11/25/19 23 11/24/2022 COMPR EHENS [place] METAB OLIC PANEL creatinine 0.75 mg/dL 0.66-1 .25 Not Available [facility] (Lab) [address] [place], [address], 11/24/2022 13:13:11/25/19 23 11/24/2022 COMPR EHENS [place] METAB OLIC PANEL GFR >60 Refer ence Range : [place] ge GFR Healt hy Adult : >60 mL/mi n/1.7 3 m2 Chron ic Kidne y Disea se: 15-60 mL/mi n/1.7 3 m2 Kidne y Failu re: <15/m L/min /1.73 m2 www.n iddk. nih.g ov The MDRD study equat ion has not been valid ated in child carroll <18 years of age; pregn ant women ; the elder ly >85 years of age; or in some racia l or ethni c subgr oups, such as wa nics. Outsi de the valid ated karina eters , estim ated GFR is less accur ate, requi ring clini melchor judgm ent on a case- by-ca se basis . Clini melchor inter preta tion for other races and ages must be made by the clini harley. The MDRD study equat ion has not been valid ated for the evalu ation of serum creat inine relat ed to nutri rex l statu s or medic ation usage . For perso ns <18 years of age, a pedia tric GFR calcu lator is avail able on the [facility] websi te: https :[email or web address] meyer.o rg/pr ofess ional s/kdo qi/gf r_cal culat or Not Available [facility] (Lab) [address] [place], [address], 11/24/2022 13:13:03 11/25/19 23 11/24/2022 COMPR EHENS [place] METAB OLIC PANEL alkaline phosphatase 40 U/L 38-[address] [facility] (Lab) [address] [place], [address], 11/24/2022 13:13:03 11/25/19 23 11/24/2022 COMPR EHENS [place] METAB OLIC PANEL alanine aminotransfe rase 38 U/L 0-35 high Not Available [facility] (Lab) [address] [place], [address], 11/24/2022 13:13:03 11/25/19 23 11/24/2022 COMPR EHENS [place] METAB OLIC PANEL aspartate aminotransfe rase 29 U/L 15-37 Not Available [facility] (Lab) [address] [place], [address], 11/24/2022 13:13:03 11/25/19 23 11/24/2022 COMPR EHENS [place] METAB OLIC PANEL bilirubin, total 0.30 mg/dL 0.20-1 .30 Not Available [facility] (Lab) [address] [place], [address], 11/24/2022 13:13:03 11/25/19 23 11/24/2022 COMPR EHENS [place] METAB OLIC PANEL calcium 9.7 mg/dL 8.4-10 .2 Not Available [facility] (Lab) [address] [place], [address], 11/24/2022 13:13:03 11/25/19 23 11/24/2022 COMPR EHENS [place] METAB OLIC PANEL total protein 7.2 g/dL 6.3-8. 2 Not Available [facility] (Lab) [address] [place], [address], 11/24/2022 13:13:03 11/25/19 23 11/24/2022 COMPR EHENS [place] METAB OLIC PANEL albumin 4.5 g/dL 3.0-4. 4 high Not Available [facility] (Lab) [address] [place], [address], 11/24/2022 13:13:03 11/25/19 23 11/24/2022 COMPR EHENS [place] METAB OLIC PANEL globulin 2.7 g/dL 2.6-4. 2 Not Available [facility] (Lab) [address] [place], [address], 11/24/2022 13:13:03 11/25/19 23 11/24/2022 COMPR EHENS [place] METAB OLIC PANEL A/G ratio 1.7 ratio 1.0-2. 0 Not Available [facility] (Lab) [address] [place], [address], 11/24/2022 13:13:03 11/25/19 23 11/24/2022 T4 FREE free T4 1.44 NG/dL 0.78-2 .19 Not Available [facility] (Lab) [address] [place], [address], 11/24/2022 13:32:14 11/25/19 23 11/24/2022 T3 FREE free T3 3.4 pg/mL 2.77-5 .27 Not Available [facility] (Lab) [address] [place], [address], 11/24/2022 13:32:22 11/25/19 23 11/24/2022 TSH thyroid-stim ulating hormone 0.377 uIU/m L 0.465- 4.680 low Not Available [facility] (Lab) [address] [place], [address], 11/24/2022 14:01:59 05/18/19 22 MAMMO , scree tai, digit al, bilat eral [facility] [address] [place] [address] Osiel walton Name: BHUMI WESTBROOK Access ion #: [id number] Sex: F : 1949 5 Locati on: RA2 Attend ing Physic chato: YEN LADD Orderi ng Physic chato: YEN LADD Exam Date: 9:52 AM Exam Name: DIGITA L QING BILAT SCREEN Admitt ing Diagno sis(es ): RADIOL OGY REPORT - FINAL EXAM: MG DIGITA L QING BILAT SCREEN HISTOR Y: screen ing mammog francia 71-yea r-old female with no curren t breast compla ints. COMPAR KOJO: 2020, 2018 TECHNI QUE: Bilate ral CC and MLO views of the breast s were perfor med. Digita l Mammog ross images were obtain ed. CAD (compu ter assist ed detect ion) was utiliz ed. FINDIN GS: The breast s are extrem alexis dense, which lowers the sensit ivity of mammog ross. No masses , asymme tries, suspic ious calcif icatio ns, or jorge alberto ectura l distor tion are seen. Page 1 of 2 [facility] Osiel walton Name: BHUMI WESTBROOK Access ion #: [id number] Sex: F : 1949 5 Exam Date: 9:52 AM Exam Name: DIGITA L QING BILAT SCREEN Admitt ing Diagno sis(es ): IMPRES CHEN: BIRADS 1: Assess ment comple te. Negati ve. Recomm end annual screen ing mammog ross. Accord ing to the [employer], yearly mammog camelia are recomm ended starti ng at age 40 and contin uing as long as the woman is in good health . Clinic al Breast Exam should be part of the period health exam-a bout every 3 years for women in their 20s and 30s and every year for women 40 and over. Breast self-e xam is an option for women in their 20s. Any breast change noted on the breast self-e xam she would be report ed prompt ly to the [facility]. A negati ve mammog ross report should not discou rage follow -up or biopsy of a clinic ally signif icant findin g and/or abnorm ality. Dense breast tissue may obscur e small neopla sms. This osiel walton has been entere d into a mammog ross remind er system with a target date for her next mammog francia. Create d and electr onical ly signed by: Alex huber MD Signed Date: 4:07 PM (CT) Dictat ed by: Alex huber MD DD: 4:07 PM (CT) DT: 4:07 PM (CT) Page 2 of 2 MIGRATION. [facility] ([facility]) [address] [place], [address], 06/22/2022 06:20:53 04/28/19 elect rocsara gordon am No observ ation record ed. MIGRATION. _[facility] [address] [place], [place], [address], 06/22/2022 06:20:53 04/28/19 23 04/28/2022 elect tiffany gordon am No observ ation record ed. MIGRATION. _[facility] [address] [place], [place], [address], 06/22/2022 06:20:53 05/11/19 23 05/11/2022 veena rauschs s test (PROC ) No observ ation record ed. MIGRATION. [address], [place], [address], 06/22/2022 06:20:53 05/11/19 23 05/11/2022 , [facility] ardio gram No observ ation record ed. [id number] [facility] [address], [place], [address], 06/22/2022 06:20:53 05/11/19 23 05/11/2022 veena can cardi olite stres s test (PROC ) No observ ation record ed. [id number] [facility] [address], [place], [address], 06/22/2022 06:20:53 05/27/19 23 05/11/2022 leandra r monit or No observ ation record ed. [id number] [facility] [address] [facility] [address], [place], [address], 06/22/2022 06:20:53 03/29/20 23 MAMMO , scree tai, digit al, bilat eral [facility] [address] [address] Patien t Name: BHUMI WESTBROOK Access ion #: [id number] Sex: F : 1949 5 Locati on: RA2 Attend ing Physic chato: YEN LADD Orderi Physic chato: YEN LADD Exam Date: 023 9:54 AM Exam Name: MG DIGITA L QING BILAT SCREEN Admitt ing Diagno sis(es ): RADIOL OGY REPORT - FINAL EXAM: MG DIGITA L QING BILAT SCREEN HISTOR Y: screen ing mammog francia 73-yea r-old female with no curren t breast compla ints. COMPAR KOJO: 2021, 2020 TECHNI QUE: Bilate ral CC and MLO views of the breast s were perfor med. Digita l Mammog ross images were obtain ed. CAD (compu ter assist ed detect ion) was utiliz ed. FINDIN GS: The breast s are extrem alexis dense, which lowers the sensit ivity of mammog ross. No masses , asymme tries, suspic ious calcif icatio ns, or jorge alberto ectura l distor tion are seen. There are typica lly benign calcif icatio ns in both Page 1 of 2 [facility] Osiel walton Name: BHUMI WESTBROOK Access ion #: [id number] Sex: F : 1949 5 Exam Date: 9:54 AM Exam Name: MG CHELLE Castanon QING BILAT SCREEN Admitt ing Diagno sis(es ): breast s. IMPRES CHEN: BIRADS 2: Assess ment comple te. Benign findin gs. Recomm end annual screen ing mammog ross. Accord ing to the [employer], yearly mammog camelia are recomm ended starti ng at age 40 and contin uing as long as the woman is in good health . Clinic al Breast Exam should be part of the period ic health exam-a bout every 3 years for women in their 20s and 30s and every year for women 40 and over. Breast self-e xam is an option for women in their 20s. Any breast change noted on the breast self-e xam she would be report ed prompt ly to the [facility]. A negati ve mammog ross report should not discou rage follow -up or biopsy of a clinic ally signif icant findin g and/or abnorm ality. Dense breast tissue may obscur e small neopla sms. This osiel walton has been entere d into a mammog ross remind er system with a target date for her next mammog francia. Create d and electr onical ly signed by: Alex huber MD Signed Date: 9:01 AM (CT) Dictat ed by: Alex huber MD DD: 9:01 AM (CT) DT: 9:01 AM (CT) Page 2 of 2 [email or web address] (Imaging) [address] [place], [address], 05/01/2023 15:01:45 05/01/19 24 bone densi ty [facility] [address] [facility] [place] [address] [phone] Patien t Name: GENIE Castanon BHUMI Aden ion #: [id number] Sex: F : 1949 2 Dictat ed By: Do Odonnell Attend ing Physic chato: YEN LADD Orderi Physic chato: YEN LADD Exam Date: 2023 10:05 AM Exam Name: XR DEXA AXIAL/ HIP/PE LVIS/S PINE Admitt ing Diagno sis(es ): INDICA TION: Postme nopaus al osteop orosis DEXA SCAN: BONE DENSIT Y REPORT : AP SPINE (L1-L4 ) : T Score: -0.2 LEFT FEMORA L NECK : T Score: -1.7 RT FEMORA L NECK : T Score: -1.5 LEFT HIP TOTAL : T Score: -1.3 RT HIP TOTAL : T Score: -1.0 TOTAL BILAT HIP AVG: T Score: -1.2 10 YEAR FRACTU RE RISK* NA IMPRES CHEN: Osteop enia bilate ral hips ------ ------ ------ ------ ------ ------ ------ ------ ----- *FRAX versio n 3.08. Fractu re probab ility calcul ated for an untrea saurabh patien t. Fractu re probab ility may be lower if the patien t has receiv ed treatm ent. T-scor e: compar kojo by lise goldstein ion (SD) to a young adult popula ja clay for sex and ethnic ity (used for postme nopaus al women and men >50 years) and classi fied by WHO criter ia. ?-1.0: normal Page 1 [facility] [address] [facility] [place] [address] [phone] Patien t Name: GABRIBHUMI Sanchez Access ion #: [id number] Sex: F : 1949 2 Dictat ed By: Do Odonnell Attend ing Physic chato: BUNNY BARTLETT Physic chato: LADDYEN Exam Date: 2023 10:05 AM Exam Name: XR DEXA AXIAL/ HIP/PE LVIS/S PINE Admitt ing Diagno sis(es ): <-1.0 to >-2.5: osteop enia ?-2.5: osteop orosis ?-2.5 plus fragil ity fractu re: severe osteop orosis Z-scor e: compar ed by SD to an age, sex, and ethnic ity popula tion (used for premen opausa l women, men <50 years, and childr en instea d of T-scor e WHO criter ia 4) <-2.0: below expect ed range/ low bone densit y for age, and a cause should be sought Electr onical ly Signed by: Do Odonnell at 2023 10:49: 53 AM Page 2 [facility] (Imaging) [address] [place], [address], 05/24/2023 11:10:48 Result Notes None recorded. Problems Name Problem SNOMED Code Status Onset Date Resolution Date Notes Provider Name and Address Organization Details Recorded Time Acquired trigger finger 9906462 Active Not Available [facility] 4 05:07:36 Triggering of digit 984261168 Active Not Available [facility] 4 05:07:36 Headache 95564246 Active Not Available [facility] 4 05:07:36 Low back pain 951533044 Active Not Available [facility] 4 05:07:36 Lesion of external ear 563209545 Active Not Available [facility] 4 05:07:36 Osteopenia 502812316 Active Not Available [facility] 4 05:07:36 Vitamin D deficiency 40688698 Active Not Available [facility] 4 05:07:36 Sinusitis 88969860 Active Not Available [facility] 4 05:07:36 Hypothyroi dism 74533222 Active Not Available [facility] 4 05:07:36 Pain of right knee joint 9729029419375 00 Active 2021 Not Available [facility] 4 05:07:36 Anxiety 25361536 Active Not Available [facility] 4 05:07:36 Hyperlipid emia 14346165 Active Not Available [facility] 4 05:07:36 Palpitatio ns 99840343 Active 2022 Not Available [facility] 4 05:07:36 Cataract 687997470 Active 2022 Not Available [facility] 4 05:07:36 Cough 23524385 Active 2022 Not Available [facility] 4 05:07:36 Problem Notes None recorded. Procedures Surgical History Date Name Laterality Status Provider Name and Address Organization Details Recorded Time 11/25/19 23 Medicare Wellness CPT Code, subsequent completed Jessica Cates RN [place] - [place] [employer] 11/24/2022 11:00:21 05/01/19 21 Most Recent Bone Density completed Not Available [facility] 06/22/2022 06:09:26 02/18/20 17 Date of Last Colonoscopy completed Not Available [facility] 06/22/2022 06:09:26 Imaging Results None recorded. Procedure Notes None recorded. Medical Equipment None Reported. Allergies Allergen ID Allergen Name Allergen Category Reaction Reaction Severity Criticality Documentation Date Start Date Code Code System Note Provider Name and Address Organization Details Recorded Time 98489 Iodinated contrast media (substanc e) medicatio n Not available Not available Not available 06/22/2022 36314 2004 SNOMED Not Available [facility] 3 06:20:34 20528 amoxicill in medicatio n Not available Not available Not available 06/22/2022 723 RxNorm Not Available [facility] 3 06:20:34 Medications Name Sig Start Date Stop Date Status Note LastModified by Organization Details LastModified Time cyclobenz aprine 10 mg tablet active Not Available Not Available No t Available fluconazo le 100 mg tablet TAKE 1 TABLET BY MOUTH EVERY DAY 05/26 completed Not Available Not Available Not Available ketoconaz ole 2 % shampoo USE TO WASH BACK EVERY DAY UNTIL CLEAR THEN TWICE WEEKLY active Not Available Not Available No t Available clindamyc in HCl 300 mg capsule TAKE 1 CAPSULE BY MOUTH EVERY 6 HOURS UNTIL ALL TAKEN 11/03 completed Not Available Not Available Not Available atorvasta tin 10 mg tablet TAKE 1 TABLET BY MOUTH DAILY 2023 active Not Available Not Available Not Avai lable azithromy jc 250 mg tablet TAKE 2 TABLETS (500 MG) BY ORAL ROUTE ONCE DAILY FOR 1 DAY THEN 1 TABLET (250 MG) BY ORAL ROUTE ONCE DAILY FOR 4 DAYS 11/24 completed Not Available Not Available Not Available valacyclo vir 1 gram tablet Take 1 tablet 3 times a day by oral route. 10/13 completed Not Available Not Available Not Available Medrol (Jaison) 4 mg tablets in a dose pack Take 1 package by oral route as directed . 06/29 completed Not Available Not Available Not Available Diflucan 150 mg tablet Take 1 tablet as needed by oral route. 06/29 completed Not Available Not Available Not Available acetamino phen 300 mg-codein e 30 mg tablet TAKE 1 TABLET BY MOUTH EVERY 6 HOURS NEEDED FOR PAIN 05/11 completed Not Available Not Available Not Available tramadol 50 mg tablet TAKE 1 TABLET BY MOUTH THREE TIMES DAILY NEEDED FOR PAIN 2022 active Not Available Not Available Not Avai lable levothyro xine 100 mcg tablet TAKE 1 TABLET BY MOUTH EVERY DAY 2023 active Not Available Not Available Not Avai lable lorazepam 0.5 mg tablet TAKE 1 TABLET BY MOUTH EVERY NIGHT AT BEDTIME NEEDED active Not Available Not Available No t Available lorazepam 2 mg tablet TAKE 1 TABLET BY MOUTH AT BEDTIME NEEDED active Not Available Not Available No t Available Cipro 500 mg tablet Take 1 tablet twice a day by oral route. 06/29 completed Not Available Not Available Not Available promethaz ine 25 mg tablet 08/14 completed Not Available Not Available Not Available butalbita l-aspirin -caffeine 50 mg-325 mg-40 mg tablet 04/03 completed Not Available Not Available Not Available butalbita l-aspirin -caffeine 50 mg-325 mg-40 mg capsule TAKE 1 CAPSULE BY MOUTH EVERY 4 HOURS active Not Available Not Available No t Available diclofena c sodium 75 mg tablet,de layed release Take 1 tablet twice a day by oral route as directed for 30 days. 04/03 completed Not Available Not Available Not Available lorazepam 1 mg tablet TAKE ONE TABLET BY MOUTH EVERY NIGHT AT BEDTIME NEEDED active Not Available Not Available No t Available dicyclomi ne 10 mg capsule 02/12 completed Not Available Not Available Not Available risedrona te 35 mg tablet Take 1 tablet every week by oral route. 01/20 completed Not Available Not Available Not Available Boostrix Tdap 2.5 Lf unit-8 mcg-5 Lf/0.5 mL intramusc ular syringe 02/12 completed Not Available Not Available Not Available Co Q-10 daily 2017 active Not Available Not Available Not Avai lable niacin takes daily 2015 active Not Available Not Available Not Avai lable folic acid takes daily 11/17 completed Not Available Not Available Not Available Calcium 600 + D(3) 2014 active Not Available Not Available Not Avai lable Fish Oil 1,000 mg capsule Take by oral route. 11/22 completed Not Available Not Available Not Available diclofena c 1 % topical gel APPLY 2 GRAMS TO THE AFFECTED AREA(S) BY TOPICAL ROUTE 4 TIMES PER DAY 11/03 completed Not Available Not Available Not Available glucosami ne 500 mg-chondr oit-msm no1 416.6 mg-C 20 mg-juan-b osw tablet Take by oral route. 2014 active Not Available Not Available Not Avai lable Vagifem 10 mcg vaginal tablet 02/12 completed Not Available Not Available Not Available levothyro xine 100 mcg capsule Take 1 capsule every day by oral route. 2014 active Not Available Not Available Not Avai lable Suprep Bowel Prep Kit 17.5 gram-3.13 gram-1.6 gram oral solution 09/19 completed Not Available Not Available Not Available risedrona te 35 mg tablet,de layed release Take 1 tablet every week by oral route. 02/12 completed pt stopped on due to ibs Not Available Not Available Not Available Vascepa 1 gram capsule Take 1 capsule twice a day by oral route. 11/16 completed Not Available Not Available Not Available Afluria 9923-7982 (PF) 45 mcg (15 mcg x 3)/0.5 mL intramusc ular syringe TO BE ADMINIST ERED BY PHARMACI ST FOR IMMUNIZA TION active Not Available Not Available No t Available Fluzone High-Dose (PF) 180 mcg/0.5 mL intramusc ular syringe TO BE ADMINIST ERED BY PHARMACI ST FOR IMMUNIZA TION active Not Available Not Available No t Available Fluzone High-Dose 4153-0525 (PF) 180 mcg/0.5 mL intramusc ular syringe active Not Available Not Available Not Available Fish Oil 1,000 mg (120 mg-180 mg) capsule Take 1 capsule every day by oral route. 2019 active Not Available Not Available Not Avai lable Fluzone High-Dose 6638-6742 (PF) 180 mcg/0.5 mL intramusc ular syringe active Not Available Not Available Not Available Fluad 65yr up(PF)45 mcg(15 mcgx3)/0. 5 mL intramusc ular syringe active Not Available Not Available Not Available Fluzone High-Dose (PF) 180 mcg/0.5 mL intramusc ular syringe active Not Available Not Available Not Available Fluad Quad (65yr up)(PF) 60 mcg (15 mcg x 4)/0.5mL IM syringe active Not Available Not Available Not Available Vitals Date Recorded Body mass index (BMI) Body height Heart rate Body temperature Body weight Systolic blood pressure Diastolic blood pressure Provider Name and Address Organization Details Last Updated DateTime 3 27.9 kg/m2 149.86 cm 62 /min 97.2 [degF] 45279.7 5 g 118 mm[Hg] 60 mm[Hg] Not Available [facility] 3 06:10:32 Date Recorded Body mass index (BMI) Body height Heart rate Body temperature Body weight Systolic blood pressure Diastolic blood pressure Provider Name and Address Organization Details Last Updated DateTime 2 27.9 kg/m2 149.86 cm 66 /min 97.6 [degF] 79544.7 5 g 118 mm[Hg] 56 mm[Hg] Not Available [facility] 3 06:10:31 Date Recorded Body mass index (BMI) Body height Heart rate Body temperature Body weight Systolic blood pressure Diastolic blood pressure Provider Name and Address Organization Details Last Updated DateTime 3 28.3 kg/m2 149.86 cm 61 /min 97.6 [degF] 56137.9 3 g 124 mm[Hg] 62 mm[Hg] Not Available [facility] 3 06:10:32 Date Recorded Body mass index (BMI) Body height Heart rate Body temperature Body weight Systolic blood pressure Diastolic blood pressure Provider Name and Address Organization Details Last Updated DateTime 2 27.9 kg/m2 149.86 cm 58 /min 96.1 [degF] 90465.7 5 g 108 mm[Hg] 70 mm[Hg] Not Available [facility] 3 06:10:31 Date Recorded Body height Body mass index (BMI) Body weight Body temperature Heart rate Oxygen saturation Oxygen saturation in Arterial blood by Pulse oximetry Systolic blood pressure Diastolic blood pressure Provider Name and Address Organization Details Last Updated DateTime 3 149.86 cm 27.7 kg/m2 05772.1 5 g 97.8 [degF] 63 /min 98 % 98 % 118 mm[Hg] 70 mm[Hg] Catina Ellis RN [place] - [facility] [place] [employer] 3 10:39:02 Social History Question Answer Notes LastModified by Organization Details LastModified Time Tobacco Smoking Status Former Smoker Not Available [facility] 06/22/2022 06:07:14 Do You Have An Advance Directive? Yes [email or web address] [id number] Information not available 06/22/2022 Are You Blind Or Do You Have Difficulty Seeing? No [email or web address].030 [id number] Information not available 06/22/2022 What Is Your Level Of Caffeine Consumption? Moderate [email or web address].030 [id number] Information not available 06/22/2022 How Much Tobacco Do You Chew? None [email or web address].030 [id number] Information not available 06/22/2022 In The 14 Days Before Symptom Onset, Have You Had Close Contact With A Laboratory-conf irmed COVID-19 While That Case Was Ill? No [email or web address].030 [id number] Information not available 06/22/2022 In The 14 Days Before Symptom Onset, Have You Had Close Contact With A Person Who Is Under Investigation For COVID-19 While That Person Was Ill? No [email or web address] [id number] Information not available 06/22/2022 Are You Deaf Or Do You Have Serious Difficulty Hearing? Yes [email or web address].[id number] [id number] Information not available 06/22/2022 What Type Of Diet Are You Following? REGULAR [id number].0301 [id number] Information not available 06/22/2022 Which Illicit Or Recreational Drugs Have You Used? None [email or web address].030 [id number] Information not available 06/22/2022 What Is The Highest Grade Or Level Of School You Have Completed Or The Highest Degree You Have Received? [id number] [email or web address].030 [id number] Information not available 06/22/2022 Have There Been Any Changes To Your Family Or Social Situation? No MIGRATION.030 [id number] Information not available 06/22/2022 What Is The Fluoride Status Of Your Home? Unknown [email or web address].030 [id number] Information not available 06/22/2022 When Did You Quit Smoking? 16+yearssincelastc igarette MIGRATION.030 [id number] Information not available 06/22/2022 Are There Any Guns Present In Your Home? Yes MIGRATION.0301 [id number] Information not available 06/22/2022 Do You Use Insect Repellent Routinely? No MIGRATION.0301 [id number] Information not available 06/22/2022 Where Do You Live? SingleLevelHouse With Basement [email or web address].030 [id number] Information not available 06/22/2022 Presence Of Domestic Violence No Information not available 11/24/2022 Guns Present In The Home? Yes Information not available 11/24/2022 Are You Able To Care For Yourself? Yes Information not available 11/24/2022 Are You Blind Or Do Yo Have Difficulty Seeing? No Information not available 11/24/2022 Are You Deaf Or Do You Have Serious Difficulty Hearing? Yes Information not available 11/24/2022 General Stress Level? Low Information not available 11/24/2022 Live Alone Of With Others? With Others Information not available 11/24/2022 Do You Have A Medical Power Of Bear Keeper? Yes [email or web address] [id number] Information not available 06/22/2022 What Was The Date Of Your Most Recent Tobacco Screening? 11/24/2022 [email or web address] Information not available 11/24/2022 Have You Ever Been Counseled For Unhealthy Alcohol Use? No [email or web address].0301 [id number] Information not available 06/22/2022 Do You Have Any Pets? No MIGRATION.0301 [id number] Information not available 06/22/2022 What Is Your Relationship Status? MIGRATION.0301 [id number] Information not available 06/22/2022 Do You Use Your Seat Belt Or Car Seat Routinely? Yes MIGRATION.0301 [id number] Information not available 06/22/2022 Do You Have Smoke And Carbon Monoxide Detectors In Your Home? Yes [email or web address].0301 [id number] Information not available 06/22/2022 Are You Passively Exposed To Smoke? No MIGRATION.0301 [id number] Information not available 06/22/2022 Are There Any Smokers In Your House? No MIGRATION.0301 [id number] Information not available 06/22/2022 How Much Tobacco Do You Smoke? No MIGRATION.0301 [id number] Information not available 06/22/2022 What Types Of Sporting Activities Do You Participate In? None MIGRATION.0301 [id number] Information not available 06/22/2022 Do You Use Sunscreen Routinely? Yes [email or web address].0301 [id number] Information not available 06/22/2022 Has Tobacco Cessation Counseling Been Provided? No MIGRATION.0301 [id number] Information not available 06/22/2022 Have You Recently Traveled Abroad? No MIGRATION.0301 [id number] Information not available 06/22/2022 Do You Have Difficulty Walking Or Climbing Stairs? No MIGRATION.0301 [id number] Information not available 06/22/2022 Do You Have Any Dietary Restrictions? No MIGRATION.0301 [id number] Information not available 06/22/2022 Sex: Female Functional Status Question Answer Note LastModified by Organizat ion Details LastModified Time Do you use any illicit or recreational drugs? No [id number] Information not available 06/22/2022 Do you or have you ever used any other forms of tobacco or nicotine? No MIGRATION.50421 [id number] Information not available 06/22/2022 What is your level of alcohol consumption? Occasional Information not available 11/24/2022 Do you or have you ever used smokeless tobacco? Never used smokeless tobacco MIGRATION.45607 11386 Information not available 06/22/2022 Do you have transportation difficulties? No MIGRATION.29070 85152 Information not available 06/22/2022 Are you able to walk? YESWOREST MIGRATION.49056 48604 Information not available 06/22/2022 Do you have difficulty doing errands alone? No MIGRATION.58859 78698 Information not available 06/22/2022 Are you able to care for yourself? Yes MIGRATION.99688 39210 Information not available 06/22/2022 What is your occupation? retired MIGRATION.39211 22517 Information not available 06/22/2022 Do you have difficulty dressing or bathing? No MIGRATION.19584 52679 Information not available 06/22/2022 Do you or have you ever used e-cigarettes or vape? Never used electronic cigarettes MIGRATION.41990 31360 Information not available 06/22/2022 What is your exercise level? Moderate golfs 2 x week MIGRATION.15063 31392 Information not available 06/22/2022 Mental Status Question Answer Note LastModified by Organizat ion Details LastModified Time Do you feel stressed (tense, restless, nervous, or anxious, or unable to sleep at night)? [id number] [id number] 26 Information not available 06/22/2022 Do you have difficulty concentrating, remembering or making decisions? No [id number] 26 Information not available 06/22/2022 Family History Relationship Description Onset Age of this Age Resolved Age Notes LastModified by Organization Details LastModified Time Sister Hypercholest erolemia MIGRATION.892 [id number] Not available 06/22/2022 06:09:32 Sister Hypothyroidi sm MIGRATION.793 [id number] Not available 06/22/2022 06:09:32 Sister Malignant tumor of breast MIGRATION.831 [id number] Not available 06/22/2022 06:09:32 Maternal Aunt Malignant tumor of breast MIGRATION.647 [id number] Not available 06/22/2022 06:09:32 Father Heart disease MIGRATION.068 [id number] Not available 06/22/2022 06:09:32 Mother Disorder of lung MIGRATION.580 [id number] Not available 06/22/2022 06:09:32 Medical History Condition Response NERVE DISEASE N BLINDNESS N RHEUMATIC FEVER N KIDNEY STONES N BLADDER PROBLEMS N MRSA N OTHER # 1 Y POLIO N LUNG DISEASE/DISORDER N RADIATION / CHEMOTHERAPY N COPD N Other # 2 N BLOOD DISEASES N EAR OR HEARING PROBLEMS N MUMPS N BOWEL PROBLEMS N DEPRESSION (INCLUDING POST ) N STROKE/TIA N ULCERS N BENIGN PROSTATIC HYPERPLASIA N MEASLES N MYOCARDIAL INFARCTION N OBESITY N GERD/NAUSEA N ANEURYSM N URINARY/BLADDER/KIDNEY PROBLEMS N CORONARY ARTERY DISEASE (CAD) N ADDICTION CONCERNS N Impotence N ENDOMETRIOSIS N USE OF BLOOD THINNERS N SKIN PROBLEMS N GASTROINTESTINAL DISORDER N PERIPHERAL VASCULAR DISEASE N MUSCLE,JOINT OR BONE PROBLEMS N GASTROINTESTINAL BLEEDING N BLOOD CLOTS N ASTHMA N CATARACTS N ERECTILE DYSFUNCTION N VARICOSITIES N GI PROBLEMS N Low Testosterone N INFERTILITY N AIDS/HIV N CHEMOTHERAPY / RADIATION N LIVER DISEASE N MALE HYPOGONADISM N HYPERTENSION N Deficiency Y TOURETTE'S N ANXIETY DISORDER Y BLOOD TRANSFUSION N ANEMIA/BLOOD DISORDER N CHRONIC EAR INFECTIONS N BRONCHITIS N TUBERCULOSIS N GLAUCOMA N FOOT PROBLEM N DIVERTICULITIS N SLEEP APNEA N CHICKENPOX N INFECTIOUS DISEASE N PROSTATE N HEART ARRHYTHMIA N INSOMNIA N HIGH CHOLESTEROL / HYPERLIPIDEMIA Y EYE PROBLEMS N HYPERTHYROIDISM N EDEMA N CHRONIC PAIN SYNDROME N HYPOTHYROIDISM Y CONSTIPATION N CAROTID BLOCKAGE N BACK / NECK PROBLEMS Y HAVE YOU BEEN HOSPITALIZED OR SEEN IN [facility] IN THE PAST YEAR ? N ATHEROSCLEROSIS N BREAST PROBLEMS N DIALYSIS N ECZEMA N OSTEOPOROSIS N ARTHRITIS N APPENDICITIS N DIABETES, TYPE N BAD TEETH N ENT N HEARTBURN / REFLUX N AUTISM SPECTRUM DISORDER (ASD) N HEPATITIS / LIVER DISEASE N GOUT N SLEEP DISORDER N ALZHEIMER'S DISEASE N Brain Problems N DEMENTIA N HERPES N SEIZURES/EPILEPSY N HEADACHES/MIGRAINES Y VASCULAR DISEASE N PACEMAKER N Blood Disorder N DIZZINESS N HEART DISEASE/HEART PROBLEMS N KIDNEY DISEASE N MULTIPLE SCLEROSIS N CANCER: SPECIFY N CARDIAC ARRHYTHMIA N ATRIAL FIBRILLATION N Gall Stones N PULMONARY EMBOLISM N AUTOIMMUNE DISEASE N Gynecological History Statement/Question Response Date of Last Mammogram 05/18/2021 Date of Last Colonoscopy 02/17/2017 Most Recent Bone Density 05/01/2020 Obstetrics History GPAL:G 0 P 0 0 0 0 Immunizations Vaccine Type Date Status Note Provider Nam e and Address Organization Details Recorded Time zoster, unspecified formulation 3 completed Not Available [facility] 05/08/2023 05:07:36 COVID-19, mRNA, LNP-S, PF, 100 mcg/0.5mL dose or 50 mcg/0.25mL dose 3 completed Not Available [facility] 05/08/2023 05:07:36 influenza, unspecified formulation 3 completed Not Available [facility] 05/08/2023 05:07:37 COVID-19, mRNA, LNP-S, PF, 100 mcg/0.5mL dose or 50 mcg/0.25mL dose 1 completed Not Available [facility] 05/08/2023 05:07:36 Influenza, high-dose, quadrivalent, PF 1 completed Not Available [facility] 05/08/2023 05:07:36 COVID-19, mRNA, LNP-S, PF, 100 mcg/0.5mL dose or 50 mcg/0.25mL dose 1 completed Not Available [facility] 05/08/2023 05:07:36 COVID-19, mRNA, LNP-S, PF, 100 mcg/0.5mL dose or 50 mcg/0.25mL dose 1 completed Not Available [facility] 05/08/2023 05:07:36 Influenza, high-dose, quadrivalent, PF 0 completed Not Available [facility] 05/08/2023 05:07:36 Influenza, high-dose, trivalent, PF 0 completed Not Available [facility] 05/08/2023 05:07:37 Influenza, high-dose, trivalent, PF 9 completed Not Available [facility] 05/08/2023 05:07:37 Tdap 8 completed Not Available [facility] 05/08/2023 05:07:37 Influenza, high-dose, trivalent, PF 6 completed Not Available [facility] 05/08/2023 05:07:37 Influenza, high-dose, quadrivalent, PF 2 completed Not Available [facility] 05/08/2023 05:07:36 COVID-19, mRNA, LNP-S, PF, 100 mcg/0.5mL dose or 50 mcg/0.25mL dose 2 completed Not Available [facility] 05/08/2023 05:07:36 Influenza, split virus, quadrivalent, preservative 7 completed Not Available [facility] 05/08/2023 05:07:36 Influenza, high-dose, trivalent, PF 7 completed Not Available [facility] 05/08/2023 05:07:37 influenza, unspecified formulation 6 completed Not Available [facility] 05/08/2023 05:07:37 influenza, unspecified formulation 5 completed Not Available [facility] 05/08/2023 05:07:37 influenza, unspecified formulation 4 completed Not Available [facility] 05/08/2023 05:07:37 Pneumococcal conjugate PCV 13 8 completed Not Available [facility] 05/08/2023 05:07:37 pneumococcal polysaccharide PPV23 7 completed Not Available [facility] 05/08/2023 05:07:36 Past Encounters Encounter ID Performer Location Encounter Start Date Encounter Closed Date Diagnosis/Indication Diagnosis SNOMED-CT Code Diagnosis ICD10 Code Diagnosis Note [id number] Pradeep Ladd MD [facility] [place] [address] [place] [address] y , [place] [address] 11/03/2020 00:00:00 11/14/2020 17:15:55 [id number] Pradeep Ladd MD [facility] Internal Med [place] [address] , [place] [address] 05/11/2021 00:00:00 05/15/2021 16:01:54 [id number] Pradeep Ladd MD [facility] Internal [place] [address] [place] [address] y , [place] [address] 10/19/2021 00:00:00 10/19/2021 22:17:08 [id number] Pradeep Ladd MD [facility] Internal [place] [address] [place] [address] y , [place] [address] 04/28/2022 00:00:00 05/15/2022 21:33:21 [id number] Pradeep Ladd MD [facility] Internal [place] [address] [place] [address] y , [place] [address] 05/26/2022 00:00:00 05/26/2022 22:25:45 [id number] Pradeep Ladd MD [facility] [place] [address] [facility] , [place] [address] 11/24/2022 10:29:49 11/24/2022 11:24:17 Adult health examination 274553005 Z00.00 Screening for disorder 736046200 Z13.9 Hyperlipidemia 23357572 E78.5 Hypothyroidism 98024070 E03.9 Vitamin D deficiency 347 47542 E55.9 Screening mammography 24 122206 Z12.31 Postmenopausal state 764 86479 Z78.0 Long-term drug therapy 187903027 Z79.899 Anxiety 43488431 F41.9 Headache 41889112 R51.9 Health Concerns Section Related Observation LastModified by Organization Detai ls LastModified Time None Recorded Concern Status LastModified by Organization Details LastModified Time None Recorded Advance Directives Directive Y: Payers Encounter Date Sequence Insurance Name Policy Number Policy Castillo Covered Member ID Castillo Member ID Guarantor Name 11/24/2022 1 [facility] - MEDICARE SOLUTIONS - MEDICARE COMPLETE (MEDICARE REPLACEMENT HMO) [id number] Bhumi Garcia [id number] Bhumi Garcia Notes Date Note Type Note Provider Name and Address Organization Details Recorded Time 11/24/2022 text/html Hypothyroid no problems hyperlipidemia tries to follow low-fat diet anxiety stable migraines have been doing fine annual Medicare Wellness concluded Pradeep Ladd MD [address] [facility] [address], [place], [address], [facility] [employer] [facility] 11/27/2022 17:51:22 OBGyn Episode No OBEpisode recorded.
--- OUTSIDE RECORDS SUMMARY | 2024-09-29 11:03 | XMS_ITS | Clinical Summary ---
Author Organization [facility] Address [address] [place] [address] Care Team Providers Care Bilingual Medical Receptionist Name Role Phone Dorian Ladd MD Primary Care Provider [phone] Source Comments [facility],non-owned Affiliates and Associated Physician Practices is amultiple site organization consisting of ambulatory clinics and hospital sitesin [place], [place], [place] and [place]. This disclosure is being madepursuant to the Care Everywhere program and may not contain all information available regarding this patient. 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 Gender Identity Not on file Sexual Orientation Not on file Plan of Treatment Health Maintenance Due Date Last Done Comments BONE DENSITY TESTING 1950 HEPATITIS C SCREENING 01/23/1966 DTAP/TDAP/TD VACCINES (1 - Tdap) 01/27/1967 PNEUMOCOCCAL VACCINE 50+ (1 of 1 - PCV) 01/27/1998 ZOSTER VACCINE (1 of 2) 01/27/1998 Respiratory Syncytial Virus (RSV) Vaccine Pt: or over 60 yrs (1 - 1-dose 75+ series) 01/27/2023 COVID-19 VACCINE ( - 2023-2 5 season) 2023 DEPRESSION SCREENING 04/24/2024 INFLUENZA VACCINE (Season Ended) 2024 HEPATITIS B VACCINE Aged Out No longe r eligible based on patient's age to complete this topic HIB VACCINE Aged Out No longer eligi ble based on patient's age to complete this topic HPV VACCINE Aged Out No longer eligi ble based on patient's age to complete this topic MENINGOCOCCAL (Group B) VACC INE SHARED DECISION-MAKING Aged Out No longer eligibl e based on patient's age to complete this topic MENINGOCOCCAL GROUPS A/C/Y/W VACCINE Aged Out No longer eligible b ased on patient's age to complete this topic Insurance [facility] MANAGED MEDICARE ADV [facility] Care Teams Bilingual Medical Receptionist Relationship Specialty Start Date End Date Dorian Ladd MD PCP - General 07/18/22
--- OUTSIDE RECORDS SUMMARY | 2024-09-29 11:03 | XMS_ITS | CONTINUITY OF CARE DOCUMENT ---
Author Name sean estrada Address Unknown Organization [facility] Address [address] [place] [address] Phone [phone] Care Team Providers Care Ceramic Maker Demonstrator Name Role Phone Juan Miguel WILSON, Vilma Unavailable VALENTIN SAMAYOA MD Unavailable [phone] VALENTIN SAMAYOA MD Unavailable [phone] INSURANCE PROVIDERS Payer name Policy type / Coverage type [place] red constitution party ID [facility] Other [id number]
--- OUTSIDE RECORDS SUMMARY | 2024-09-29 11:03 | XMS_ITS | Encounter Summary ---
Author Organization [facility] Address [address] [place] [address] Care Team Providers Care Registered Nurse Ambulatory Name Role Phone Dorian Ladd MD Primary Care Provider [phone] Encounter Details Date Type Department Care Team (Late st Contact Info) Description 05/10/2023 Lab Requisition [facility] - DermPath Lab [address] [place] [address] Tanja Palomares MD [address] [facility] [address] DEPT [place] [address] Social History Tobacco Use Types Packs/Day Years Used Date Smoking Tobacco: Never Assessed Comments Unknown Sex and Gender Information Value Date Recorded Sex Assigned at Not on file Legal Sex Female 6:17 AM SUBSTANCE ABUSE NURSE Gender Identity Not on file Sexual Orientation Not on file documented as of this encounter Plan of Treatment Not on file documented as of this encounter Procedures Procedure Name Priority Date/Time Associated Diagnosis Comments DERMATOPATHOLOGY Routine 05/10/2023 11:3 9 AM SUBSTANCE ABUSE NURSE documented in this encounter Results * DERMATOPATHOLOGY (05/10/2023 11:39 AM SUBSTANCE ABUSE NURSE) Case Report Dermatopathology Report Case: [id number] Authorizing Provider: Tanja Palomares MD Collected: 05/10/2023 11:39 AM Ordering Location: [facility] DermPath Lab Received: 05/11/2023 01:52 PM Pathologist: Jelly Dong MD Specimen: Skin, left upper eyelid 1:04 PM SUBSTANCE ABUSE NURSE DERMATOPATHOLOGY LABORATORY Final Diagnosis Specimen A. SKIN, left upper eyelid: RUPTURED EPIDERMOID CYST (L72.0) (see microscopic description) 4 1:04 PM [facility] DERMATOPATHOLOGY LABORATORY at 1304 SUBSTANCE ABUSE NURSE Clinical History Growing pink nodule Cyst vs. NMSC 1:04 PM [facility] DERMATOPATHOLOGY LABORATORY Gross Description Specimen A: Received is one formalin filled container labeled with the patient's name and designated left upper eyelid. The specimen consists of a shave biopsy measuring 1x1x1 mm. Jar 0. 1:04 PM [facility] DERMATOPATHOLOGY LABORATORY Microscopic Description Specimen A. SKIN, left upper eyelid: Within the dermis, there is an infiltrate composed of lymphocytes and histiocytes, including multinucleated type giant cells. Some histiocytes contain flakes of material consistent with keratin. Additional deeper sections were obtained and reviewed. COMMENT: Given the superficial nature of the biopsy specimen, a deeper dermal process cannot be excluded. 1:04 PM [facility] DERMATOPATHOLOGY LABORATORY Disclaimer An external and internal positive and negative controls are appropriate for the histochemical, immunohistochemical and immunofluorescence stain(s) in this case (if any), except where stated explicitly. The performance characteristics of the stain(s) cited in this report were developed and its performance characteristic determined by the Dermatopathology Laboratory at [facility], directed by Dr. Boris Catalan. These tests need not be, and therefore are not, approved by the [place] Food and Drug Administration. The tests are used for clinical purposes. Billing Codes Specimen Charges Stain Charges 94809 1 1:04 PM [facility] DERMATOPATHOLOGY LABORATORY Embedded Images 1:04 PM [facility] DERMATOPATHOLOGY LABORATORY Pathology/Cytolo gy TISSUE SPECIMEN FROM SKIN / Unknown 05/10/2023 11:39 AM SUBSTANCE ABUSE NURSE 05/11/2023 1:52 PM [facility] Tanja Palomares MD LAB - PATHOLOGY/CYTOLOGY OR DERABLES Final Result DERMATOPATHOLOGY LABORATORY [facility] - Department of Dermatology [address], [address] [phone] documented in this encounter Visit Diagnoses Not on filedocumented in this encounter Care Teams Registered Nurse Ambulatory Relationship Specialty Start Date End Date Dorian Ladd MD PCP - General 07/18/22 documented as of this encounter
--- NOTE | 2024-09-29 11:05 | ECG_ITS ---
Test Date: 2024-09-29 11:09:34 Measurements Intervals [place] Rate: 61 P: 36 DC: 181 QRS: 49 QRSD: 90 T: 53 QT: 431 QTc: 436 Interpretive Statements SINUS RHYTHM DELAYED PRECORDIAL R/S TRANSITION BASELINE ARTIFACT- I, II, AVR, AVL, AVF, V1 BORDERLINE ECG No previous ECG available for comparison Electronically Signed On 09-29-2024 12:36:12 CDT by Torrey Dalton D.O.
[2024-09-29 13:05] LABS: Basophils Percent Auto 0.3 % (0.2-1.2); Eosinophils Absolute Auto 0.1 K/mm3 (0-0.3); Eosinophils Percent Auto 0.4 % (0-4.4); Hematocrit 44.4 % (37.0-47.0); Hemoglobin 14.3 g/dL (12.0-15.0); Immature Granulocyte Absolute 0.06 K/mm3 (0.00-0.031); Immature Granulocyte Percent A 0.5 % (0-0.5); Lymphocytes Absolute Auto 0.62 K/mm3 (0.9-3.2); Lymphocytes Percent Auto 5.1 % (18.3-44.2); Mean Corpuscular HGB Conc 32.2 g/dl (32-36); Mean Corpuscular Hemoglobin 29.4 pg (26-34); Mean Corpuscular Volume 91.2 fl (80-100); Monocytes Absolute Auto 0.6 K/mm3 (0.1-0.6); Monocytes Percent Auto 5.3 % (2.6-8.5); Neutrophils Absolute Auto 10.7 K/mm3 (1.3-6.7); Neutrophils Percent Auto 88.4 % (45.5-73.1); Platelet Count Result 212 k/mm3 (150-375); Red Blood Count 4.87 M/mm3 (4.2-5.4); Red Cell Distribution Width 12.5 % (11.5-14.5); White Blood Count 12.1 K/mm3 (4.5-10.0)
[2024-09-29 13:16] LABS: Alanine Aminotransferase 23 U/L (6-35); Albumin Level 4.5 g/dL (3.5-5.1); Alkaline Phosphatase 55 U/L (38-126); Anion Gap 10 mmol/L (4-12); Aspartate Amino Transferase 29 U/L (14-36); Bilirubin,Total 0.3 mg/dL (0.2-1.3); Blood Urea Nitrogen 19 mg/dL (7-17); Calcium 9.6 mg/dL (8.4-10.2); Carbon Dioxide 26 mmol/L (22-30); Chloride 103 mmol/L (98-107); Estimated Glomerular Filt Rate > 60; Glucose 126 mg/dL (65-110); Potassium 4.2 mmol/L (3.4-5.0); Sodium 139 mmol/L (137-145); Total Protein 7.5 g/dL (6.3-8.2)
--- OUTSIDE RECORDS SUMMARY | 2024-09-29 13:21 | XMS_ITS | Clinical Summary ---
Author Organization [facility] Address [address] [place] [address] Care Team Providers Care Llama Farmer Name Role Phone Dorain Ladd MD Primary Care Provider [phone] Source Comments [facility],non-owned Affiliates and Associated Physician Practices is amultiple site organization consisting of ambulatory clinics and hospital sitesin [place], [place], [place] and [place]. This disclosure is being madepursuant to the Care Everywhere program and may not contain all information available regarding this patient. 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
--- OUTSIDE RECORDS SUMMARY | 2024-09-29 13:21 | XMS_ITS | CONTINUITY OF CARE DOCUMENT ---
Author Name sean estrada Address Unknown Organization [facility] Address [address] [place] [address] Phone [phone] Care Team Providers Care Literacy Coordinator Name Role Phone Juan Miguel WILSON, Vilma Unavailable VALENTIN SAMAYOA MD Unavailable VALENTIN SAMAYOA MD Unavailable INSURANCE PROVIDERS Payer name Policy type / Coverage type [place] red libertarian ID [facility] Other [id number]
--- OUTSIDE RECORDS SUMMARY | 2024-09-29 13:21 | XMS_ITS | Encounter Summary ---
Author Organization [facility] Address [address] [place] [address] Care Team Providers Care Liquified Natural Gas Specialist Name Role Phone Dorian Ladd MD Primary Care Provider [phone] Encounter Details Date Type Department Care Team (Late st Contact Info) Description 05/10/2023 Lab Requisition [facility] - DermPath Lab 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 Gender Identity Not on file Sexual Orientation Not on file documented as of this encounter Plan of Treatment Not on file documented as of this encounter Procedures Procedure Name Priority Date/Time Associated Diagnosis Comments DERMATOPATHOLOGY Routine 05/10/2023 11:3 9 AM MATERIAL LOADER documented in this encounter Results * DERMATOPATHOLOGY (05/10/2023 11:39 AM MATERIAL LOADER) Case Report Dermatopathology Report Case: [id number] Authorizing Provider: Tanja Palomares MD Collected: 05/10/2023 11:39 AM Ordering Location: [facility] DermPath Lab Received: 05/11/2023 01:52 PM Pathologist: Jelly Dong MD Specimen: Skin, left upper eyelid 1:04 PM MATERIAL LOADER DERMATOPATHOLOGY LABORATORY Final Diagnosis Specimen A. SKIN, left upper eyelid: RUPTURED EPIDERMOID CYST (L72.0) (see microscopic description) 4 1:04 PM [facility] DERMATOPATHOLOGY LABORATORY at [address]4 MATERIAL LOADER Clinical History Growing pink nodule Cyst vs. NMSC 1:04 PM [facility] DERMATOPATHOLOGY LABORATORY Gross Description Specimen A: Received is one formalin filled container labeled with the patient's name and designated left upper eyelid. The specimen consists of a shave biopsy measuring 1x1x1 mm. Jar 0. 1:04 PM [facility] DERMATOPATHOLOGY LABORATORY Microscopic Description Specimen A. SKIN, left upper eyelid: Within the dermis, there is an infiltrate composed of lymphocytes and histiocytes, including multinucleated type giant cells. Some histiocytes contain flakes of material consistent with keratin. Additional deeper sections were obtained and reviewed. COMMENT: Given the superficial nature of the biopsy specimen, a deeper dermal process cannot be excluded. 1:04 PM [facility] DERMATOPATHOLOGY LABORATORY Disclaimer An external and internal positive and negative controls are appropriate for the histochemical, immunohistochemical and immunofluorescence stain(s) in this case (if any), except where stated explicitly. The performance characteristics of the stain(s) cited in this report were developed and its performance characteristic determined by the Dermatopathology Laboratory at [facility], directed by Dr. Boris Catalan. These tests need not be, and therefore are not, approved by the [place] Food and Drug Administration. The tests are used for clinical purposes. Billing Codes Specimen Charges Stain Charges 81906 1 1:04 PM [facility] DERMATOPATHOLOGY LABORATORY Embedded Images 1:04 PM [facility] DERMATOPATHOLOGY LABORATORY Pathology/Cytolo gy TISSUE SPECIMEN FROM SKIN / Unknown 05/10/2023 11:39 AM MATERIAL LOADER 05/11/2023 1:52 PM [facility] Tanja Palomares MD LAB - PATHOLOGY/CYTOLOGY OR DERABLES Final Result DERMATOPATHOLOGY LABORATORY [facility] - Department of Dermatology [address] [phone] documented in this encounter Visit Diagnoses Not on filedocumented in this encounter Care Teams Liquified Natural Gas Specialist Relationship Specialty Start Date End Date Dorian Ladd MD PCP - General 07/18/22 documented as of this encounter
[2024-09-29] MEDS: SODIUM CHLORIDE 0.9% IV 1,000 ML 999 ML IV CONT (13:40)
--- NOTE | 2024-09-29 13:50 | ED_ITS ---
HPI - General Adult General Chief complaint: Syncope Stated complaint: palpitations, syncope today, dizziness Time Seen by Provider: 09/29/24 13:15 History of Present Illness HPI narrative: Patient is a 74-year-old female who presents ER after having syncopal episode at home. She was on the toilet had a bowel movement. She is also nauseous. She then blacked out and got caught between her wall and toilet. She was then incontinent of diarrhea on herself. She has some dizziness when she turns her head to the right. She is not having nausea vomiting this time. No chest pain shortness of breath. No weakness or numbness to any arm or leg. She is not on blood thinning medication. Unknown if she struck her head but no evidence of trauma reports she is stuck between the wall and toilet. Related Data Home Medications ?Medication ?Instructions ?Recorded ?Confirmed ?Last Taken ?Type acetaminophen 650 mg See Rx Instructions PO Q12H 08/27/19 01/13/22 Unknown History tablet,extended release (Tylenol 8 Hour) atorvastatin 10 mg tablet 10 mg PO DAILY 08/27/19 01/13/22 Unknown History calcium 600 mg (as cap PO 08/27/19 01/13/22 Unknown History carbonate)-vitamin D3 12.5 mcg (500 unit) capsule (Calcium with Vit D3) ibuprofen 400 mg tablet 400 mg PO TID 08/27/19 01/13/22 Unknown History levothyroxine 100 mcg capsule 100 mcg PO DAILY 08/27/19 01/13/22 Unknown History loratadine 5 mg/5 mL oral solution See Rx Instructions PO ONCE 08/27/19 01/13/22 Unknown History (Claritin) lorazepam 2 mg/mL oral concentrate 2 mg PO DAILY PRN 08/27/19 01/13/22 Unknown History niacin 500 mg capsule,extended 500 mg PO QAM 08/27/19 01/13/22 Unknown History release omega-3 fatty acids 1,000 mg 1,000 mg PO DAILY 08/27/19 01/13/22 Unknown History capsule coenzyme Q10 100 mg capsule 100 mg PO DAILY 01/12/22 01/13/22 Unknown History (CoQ-10) ijbovtejkgf-kap-jpvcgeefm-hrb tablet PO 01/13/22 01/13/22 Unknown History 149-hyalur 500 mg-500 mg-66.7 mg tablet (Mhcjxnwclos-Teheqyepfqo-IOB (with antiox)) Allergies Allergy/AdvReac Type Severity Reaction Status Date / Time Iodinated Contrast Media Allergy Severe Itching Verified 01/13/22 10:07 amoxicillin Allergy rash and Verified 01/13/22 10:07 itching Review of Systems 2 Review of Systems: All systems reviewed & are unremarkable except as noted in HPI and below Constitutional: Constitutional: Reports no additional constitutional complaints ENT: Reports system reviewed and no additional complaints, except as documented Cardiovascular: Cardiovascular: Reports no additional cardiovascular complaints Respiratory: Respiratory: Reports no additional respiratory complaints Gastrointestinal: Gastrointestinal: Reports no additional gastrointestinal complaints Genitourinary: Genitourinary: Reports no additional female genitourinary complaints PMFSH Past Medical History Medical History Allergies Headache History of torticollis Thyroid disorder Surgical History Surgical History H/O: hysterectomy History of bladder surgery History of nephrectomy Family History Family History Other Cancer Father Hypertension Heart disease Grandparent Hypertension Heart disease Sibling Depression Thyroid disorder Mother Thyroid disorder Daughter Thyroid disorder Social History Social History Smoking status: Never smoker Alcohol intake: current Substance use: never Living arrangements: with family Occupation/Education: retired Exam 2 Narrative: GENERAL: Well-appearing, well-nourished, and in no acute distress. HEAD: Normocephalic, atraumatic. EYES: PERRL and EOMI. ENT: Mucous membranes moist. Right-sided cerumen impaction. CHEST: Clear to auscultation. No respiratory distress. HEART: Regular rate and rhythm. Normal peripheral pulses. ABDOMEN: Soft, nontender, nondistended. EXTREMITIES: Normal range of motion. No edema. SKIN: Warm, dry, no rash. NEURO: Clear speech, no facial droop, ambulates without issue. Alert and oriented x3. PSYCH: Normal mood and affect. Course Course Emergency Course: Resting comfortably. Feels improved after IV fluid. Also had irrigation performed successfully. Will give some meclizine and discharged home. Follow- up with PCP. Discussed return precautions. Vital Signs Vital signs: Vital Signs Temperature 97.2 F L 09/29/24 11:06 Pulse Rate 58 L 09/29/24 11:06 Respiratory Rate 14 09/29/24 11:06 Blood Pressure 113/57 L 09/29/24 11:06 Pulse Oximetry 100 09/29/24 11:06 Temperature 97.2 F L 09/29/24 11:06 Pulse Rate 61 09/29/24 14:03 Respiratory Rate 18 09/29/24 14:03 Blood Pressure 115/68 09/29/24 14:03 Pulse Oximetry 100 09/29/24 14:03 Procedures Ear Wax Removal Right Ear: Ear Wax Removal Date: 09/29/24 Cerumenolytic Used: 5-10% Sodium Bicarb solution Results: Re-examined: cerumen removed completely TM Examination: TM(s) intact, normal appearance Ear Canal Exam: atraumatic Patient Tolerated Procedure: well Complications: no problems Technique: ear canal irrigated Medical Decision Making Vital Signs Vital Signs: Vital Signs Temperature 97.2 F L 09/29/24 11:06 Pulse Rate 58 L 09/29/24 11:06 Respiratory Rate 14 09/29/24 11:06 Blood Pressure 113/57 L 09/29/24 11:06 Pulse Oximetry 100 09/29/24 11:06 Temperature 97.2 F L 09/29/24 11:06 Pulse Rate 61 09/29/24 14:03 Respiratory Rate 18 09/29/24 14:03 Blood Pressure 115/68 09/29/24 14:03 Pulse Oximetry 100 09/29/24 14:03 Lab Data 09/29/24 13:00 09/29/24 13:00 Labs: Lab Results 09/29/24 09/29/24 Range/Units 13:00 14:21 WBC 12.1 H (4.5-10.0) K/mm3 RBC 4.87 (4.2-5.4) M/mm3 Hgb 14.3 (12.0-15.0) g/dL Hct 44.4 (37.0-47.0) % MCV 91.2 (80-100) fl MCH 29.4 (26-34) pg MCHC 32.2 (32-36) g/dl RDW 12.5 (11.5-14.5) % Plt Count 212 (150-375) k/mm3 MPV 9.0 (7.4-10.4) fl Immature Gran % (Auto) 0.5 (0-0.5) % Neut % (Auto) 88.4 H (45.5-73.1) % Lymph % (Auto) 5.1 L (18.3-44.2) % [place] % (Auto) 5.3 (2.6-8.5) % Eos % (Auto) 0.4 (0-4.4) % Baso % (Auto) 0.3 (0.2-1.2) % Lymph # (Auto) 0.62 L (0.9-3.2) K/mm3 [place] # (Auto) 0.6 (0.1-0.6) K/mm3 Eos # (Auto) 0.1 (0-0.3) K/mm3 Baso # (Auto) 0.0 (0.0-0.1) K/mm3 Abs Immat Gran (auto) 0.06 H (0.00-0.031) K/mm3 Absolute Neuts (auto) 10.7 H (1.3-6.7) K/mm3 Absolute Nucleated RBC 0.000 (0.0-0.012) K/mm3 Nucleated RBC % 0.0 (0.0-0.2) % Sodium 139 (137-145) mmol/L Potassium 4.2 (3.4-5.0) mmol/L Chloride 103 (98-107) mmol/L Carbon Dioxide 26 (22-30) mmol/L Anion Gap 10 (4-12) mmol/L BUN 19 H (7-17) mg/dL Creatinine 0.83 (0.7-1.0) mg/dL Estim Creat Clear Calc Not Reportable Estimated GFR > 60 (59 - ) Glucose 126 H (65-110) mg/dL Calcium 9.6 (8.4-10.2) mg/dL Total Bilirubin 0.3 (0.2-1.3) mg/dL AST 29 (14-36) U/L ALT 23 (6-35) U/L Alkaline Phosphatase 55 (38-126) U/L Troponin I < 0.012 (0.000-0.034) ng/mL Total Protein 7.5 (6.3-8.2) g/dL Albumin 4.5 (3.5-5.1) g/dL Urine Color Yellow (Yellow) Urine Appearance Clear (Clear) Urine pH 6.0 (5.0-9.0) Ur Specific [place] 1.015 (1.001-1.035) Urine Protein Trace (Negative) mg/dL Urine Glucose (UA) Negative (Negative) mg/dL Urine Ketones Negative (Negative) mg/dL Ur Blood (Man) Negative (Negative) Urine Nitrate Negative (Negative) Urine Bilirubin Negative (Negative) Urine Urobilinogen 0.2 (<2.0) mg/dL Add Ur Microanalysis Reviewed Leukocyte Esterase Rfl 1+ H (Negative) DAMI/UL Urine RBC 0-2 (0-2) /hpf Urine WBC 0-5 (0-3) /hpf Ur Squamous Epith Cells Occasional (Few) /hpf Urine Bacteria None seen /hpf Urine Casts 0-2 Discharge Plan Discharge Clinical Impression: Syncope, Cerumen impaction Patient Disposition: Home Condition: Stable Instructions: Syncope (ED) Additional Instructions: Return ER if you have chest pain, have recurrent loss of consciousness, you can not keep down food water, or you have additional concerns. Patient Language: Mauritanian Prescriptions: No Action coenzyme Q10 [CoQ-10] 100 mg capsule 100 mg PO DAILY [id number] [Mdduid-Odcdc-QMM (with antiox)] 500-500-66.7 mg tablet PO levothyroxine 100 mcg capsule 100 mcg PO DAILY atorvastatin 10 mg tablet 10 mg PO DAILY lorazepam 2 mg/mL concentrate 2 mg PO DAILY PRN niacin 500 mg capsule, extended release 500 mg PO QAM acetaminophen [Tylenol 8 Hour] 650 mg tablet extended release See Rx Instructions PO Q12H Rx Instructions: as needed PO every 12 hours; calcium carbonate-vitamin D3 [Calcium 600 with Vitamin D3] 600 mg(1,500mg) - 500 unit capsule PO omega-3 fatty acids 1,000 mg capsule 1,000 mg PO DAILY ibuprofen 400 mg tablet 400 mg PO TID loratadine [Claritin] 5 mg/5 mL solution See Rx Instructions PO ONCE Rx Instructions: as needed PO once; Follow-up/Referrals: Wilberto,MD Dorian [Primary Care Provider] - 1 Week
[2024-09-29 13:51] LABS: Troponin I < 0.012 ng/mL (0.000-0.034)
[2024-09-29 14:39] LABS: Add Urine Microscopic? YES; Appearance Urine Clear (Clear); Bacteria Urine None Seen /hpf; Bilirubin Urine Negative (Negative); Blood Urine Negative (Negative); Color Urine Yellow (Yellow); Glucose Urine UA Negative (Negative); Ketones Urine Negative (Negative); Leukocyte Esterase Ur 1+ LEU/UL (Negative); Need Manual Microscopic Reviewed; Nitrate Urine Negative (Negative); Non Pathogenic Casts 0-2; Protein Urine Trace mg/dL (Negative); RBC Urine 0-2 /hpf (0-2); Specific Grav Ur 1.015 (1.001-1.035); Squamous Epithelial Cell Urine Occasional /hpf (Few); Urobilinogen Urine 0.2 mg/dL (<2.0); WBC Urine 0-5 /hpf (0-3)
[2024-09-29] MEDS: MECLIZINE HCL 12.5 MG TABLET PO (16:39)
== END 2024-09-29 16:43 | disposition home or self-care (01) ==
PROVIDERS: Emergency Provider Emergency Medicine; PCP Internal Medicine
DX: R55 Syncope and collapse (principal); H61.21 Impacted cerumen, right ear
CPT/HCPCS: 36415; 69209; 71046; 80053; 81001; 84484; 85025; 87086; 93005; 99284; A9270; J7030